=== PATIENT | female | born 1970 | race Caucasian/White ===

== ENCOUNTER 2022-11-27 14:41 | Emergency (ER) | payer OTHER, SELFPAY ==
[2022-11-27 14:53] VITALS: BP 124/85; PULSE 71; RESP 16; TEMP 36.4; O2SAT 99
--- NOTE | 2022-11-27 15:01 | ED.GENADULT ---
HPI - General Adult General Chief complaint: Nausea/Vomiting/Diarrhea Stated complaint: nausea Time Seen by Provider: 11/27/22 15:02 Source: patient, RN notes reviewed and old records reviewed Mode of arrival: ambulatory Limitations: no limitations History of Present Illness HPI narrative: 52-year-old female presents to the [facility] with complaints of flu-like symptoms that she had on the 18 12 and . Had called into work, tried going back today and they are requesting a work note. Patient has had no symptoms today. Patient states she has not had symptoms in about 36 hours. Related Data Home Medications Medication Instructions Recorded Confirmed No Home Medications 11/27/22 11/27/22 Allergies Allergy/AdvReac Type Severity Reaction Status Date / Time adhesive AdvReac Unknown BLISTERS Unverified 11/27/22 15:04 latex AdvReac Unknown BLISTERS Unverified 11/27/22 15:04 Penicillins AdvReac Unknown BLISTERS Unverified 11/27/22 15:04 Review of Systems Review of Systems: All systems reviewed & are unremarkable except as noted in HPI and below Constitutional: Constitutional: Reports no additional constitutional complaints Eyes: Eyes: Reports no additional eye complaints ENT: Reports system reviewed and no additional complaints, except as documented Cardiovascular: Cardiovascular: Reports no additional cardiovascular complaints, Denies chest pain and Denies dyspnea Respiratory: Respiratory: Reports no additional respiratory complaints, Denies chest congestion, Denies cough and Denies dyspnea Gastrointestinal: Gastrointestinal: Reports as per HPI, Denies abdominal pain, Reports nausea and Denies vomiting Musculoskeletal: Musculoskeletal: Reports no additional musculoskeletal complaints Integumentary/Breasts: Skin/Breast: Reports system reviewed and no additional complaints, except as docu Neurologic: Reports system reviewed and no additional complaints, except as documented Psychiatric: Psychiatric: Reports no additional psychiatric complaints Allergic/Immunologic: Allergic/Immunologic: Reports no additional allergic/immunologic complaints PMFSH Comments At the time of my signature, I reviewed and agree with the nursing past medical, surgical, social, and family history. There is no relevant family history pertinent to the patient complaint. Exam Const: General: cooperative, healthy appearing, comfortable, no acute distress, well developed, alert and well nourished Nutritional Appearance: well nourished Orientation/consciousness: patient oriented x3 Limitations: no limitations HENMT: Head: normal to inspection Ears: hearing grossly normal bilaterally and external ears normal Face/Nose/Sinus: Normal external nose present, Normal nares present, Normal nasal mucous membranes and turbinates present and normal facial exam Face and sinus: normal facial exam Mouth: Yes Normal oral and palatal mucosa present, Yes lip normal and Yes moist mucous membranes Throat: posterior oropharynx normal and uvula midline Eyes: General: appearance normal, both eyes and all related structures Alignment and Position: alignment normal Periorbital: periorbital findings normal Conjunctivae: conjunctivae normal Pupils: Equal, round and reactive pupils present EOM: EOMs intact bilaterally Neck: Neck: normal visual inspection, full ROM, no lymphadenopathy and no meningeal signs Chest: Chest palpation & inspection: normal inspection of the chest Resp: Effort & Inspection: normal respiratory effort and able to speak in complete sentences Auscultation: clear to auscultation bilaterally, no crackles, no rales, no rhonchi and no wheezes Cardio: Rate: regular rate Rhythm: regular rhythm GI: GI Palp: Yes Soft to palpation and No Tenderness to palpation present (GI) Back/Spine/Pelvis: Cervical Spine: cervical ROM normal Thoracic/Lumbar Spine: No thoracic spinal tenderness Skin: General skin exam: normal color and no rashes or lesion
== END 2022-11-27 15:10 | disposition home or self-care (01) ==
PROVIDERS: Emergency Provider Nurse Practitioner
DX: R11.0 Nausea (principal); I25.10 Atherosclerotic heart disease of native coronary artery without angina pectoris; Z95.5 Presence of coronary angioplasty implant and graft; I25.2 Old myocardial infarction
CPT/HCPCS: 99211; G0463

== ENCOUNTER 2024-12-03 16:51 | Emergency (ER) | payer OTHER, SELFPAY ==
[2024-12-03] VITALS (12 sets, daily range): BP systolic 97–124; BP diastolic 70–97; PULSE 54–77; RESP 10–20; TEMP 36.6; O2SAT 97–100
--- NOTE | ~2024-12-03 | CT_ITS ---
EXAMINATION: CTA abdomen pelvis DATE: 12/03/2024 20:23 BIT SANDER INDICATION: Abdomen pain. History of mesenteric thrombosis. TECHNIQUE: Computed tomographic angiography (CTA) of the abdomen, and pelvis was performed with 100 m L Omnipaque-350 intravenous contrast. The dose-length product was 198.31 mGy-cm. Maximum intensity pr ojection 3D-reconstructions of the aorta and other arteries were constructed by the technologist on a separate workstation. Automated exposure control and iterative reconstruction technique were cherelle fonseca. COMPARISON: None. FINDINGS: Abdomen/pelvis CTA: There is extensive atherosclerosis of the aorta. There are severe stenosis of the celiac axis and SMA with the origins of each of these being nearly completely occluded. There is mild narrowing of the o rigin the right renal artery. There is near complete occlusion of the right common iliac with reconst itution in the pelvis. There is a severe stenosis of the left external iliac artery. Gallbladder cont ains hyperdense material, possibly vicarious excretion of contrast. There are stents in the celiac ax is, SMA and iliac arteries. The spleen, pancreas, adrenal glands and kidneys are unremarkable. No bertha e air or free fluid. Nonobstructive bowel pattern. There is degenerative disc disease and endplate de generative change at L4-5. Lung bases are unremarkable. Calcified granuloma right lower lobe. IMPRESSION: 1. Severe extensive atherosclerosis of the aorta, celiac axis, SMA, iliac arteries. Mild stenosis rig ht renal artery origin. Reviewed, dictated and finalized at location A. SANDER IMPRESSION: 1. Severe extensive atherosclerosis of the aorta, celiac axis, SMA, iliac arter ies. Mild stenosis right renal artery origin.
[2024-12-03] MEDS: SODIUM CHLORIDE 0.9% IV 1,000 ML 999 ML IV CONT (18:50)
[2024-12-03 19:02] LABS: Basophils Percent Auto 0.4 % (0.2-1.2); Eosinophils Percent Auto 0.2 % (0-4.4); Hematocrit 41.4 % (37.0-47.0); Hemoglobin 14.1 g/dL (12.0-15.0); Immature Granulocyte Absolute 0.03 K/mm3 (0.00-0.031); Immature Granulocyte Percent A 0.3 % (0-0.5); Lymphocytes Absolute Auto 3.24 K/mm3 (0.9-3.2); Lymphocytes Percent Auto 31.3 % (18.3-44.2); Mean Corpuscular HGB Conc 34.1 g/dl (32-36); Mean Corpuscular Hemoglobin 32.9 pg (26-34); Mean Corpuscular Volume 96.7 fl (80-100); Mean Platelet Volume 10.2 fl (7.4-10.4); Monocytes Absolute Auto 0.8 K/mm3 (0.1-0.6); Monocytes Percent Auto 7.3 % (2.6-8.5); Neutrophils Absolute Auto 6.3 K/mm3 (1.3-6.7); Neutrophils Percent Auto 60.5 % (45.5-73.1); Platelet Count Result 287 k/mm3 (150-375); Red Blood Count 4.28 M/mm3 (4.2-5.4); Red Cell Distribution Width 12.7 % (11.5-14.5); White Blood Count 10.4 K/mm3 (4.5-10.0)
--- NOTE | 2024-12-03 19:18 | ED.NAVMDI ---
HPI - Nausea/Vomiting/Diarrhea General Chief complaint: Nausea/Vomiting/Diarrhea Stated complaint: n/v/d Time Seen by Provider: 12/03/24 18:31 Source: patient Mode of arrival: ambulatory Limitations: no limitations History of Present Illness HPI Narrative: This is a 54-year-old female that presents to the emergency department for abdominal pain. Reports this has been progressing over the last month or 2. Reports she is to the point where she can hardly eat due to the pain. She has also experienced nausea vomiting. Reports history of vascular disease with stents placed by Dr. Kathleen. Denies fevers. Related Data Home Medications ?Medication ?Instructions ?Recorded ?Confirmed ?Last Taken ?Type No Home Medications 11/27/22 11/27/22 Unknown History Allergies Allergy/AdvReac Type Severity Reaction Status Date / Time adhesive AdvReac Unknown BLISTERS Verified 12/03/24 18:48 latex AdvReac Unknown BLISTERS Verified 12/03/24 18:48 Penicillins AdvReac Unknown BLISTERS Verified 12/03/24 18:48 Review of Systems Review of Systems: CONSTITUTIONAL: Denies fever GASTROINTESTINAL: Reports abdominal pain, nausea, vomiting All systems reviewed & are unremarkable except as noted in HPI and below PMFSH Past Medical History Medical History (Updated 12/04/24 @ 00:39 by Dorina Powell PA-C) History of vascular disease Social History Social History (Updated 12/04/24 @ 00:39 by Dorina Powell PA-C) Substance use: never Exam Narrative: GENERAL: Well-appearing, well-nourished, and in no acute distress. HEAD: Normocephalic, atraumatic. EYES: EOMI. CHEST: Clear to auscultation. No respiratory distress. No wheezes rales or rhonchi HEART: Regular rate and rhythm. No murmur heard. Normal peripheral pulses. ABDOMEN: Soft, nondistended, normal active bowel sounds. Tender to palpation throughout the abdomen, without guarding EXTREMITIES: Normal range of motion. No edema. SKIN: Warm, dry, no rash. NEURO: No focal deficits. Alert and oriented x3. PSYCH: Normal mood and affect Course Course Emergency Course: patient updated on her workup and recommendation for transfer Consultations Consultation #1: Spoke with vascular surgery at Dr. Heriberto Betancourt about patient and workup who accepts patient as transfer. Recommends starting heparin drip Date: 12/04/24 Vital Signs Vital signs: Vital Signs Temperature 97.9 F 12/03/24 17:06 Pulse Rate 77 12/03/24 17:06 Respiratory Rate 18 12/03/24 17:06 Blood Pressure 97/71 L 12/03/24 17:06 Pulse Oximetry 97 12/03/24 17:06 Oxygen Delivery Room Air 12/03/24 17:06 Temperature 97.9 F 12/03/24 17:06 Pulse Rate 59 L 12/04/24 00:31 Respiratory Rate 17 12/04/24 00:31 Blood Pressure 104/71 12/04/24 00:31 Pulse Oximetry 99 12/04/24 00:31 Oxygen Delivery Room Air 12/03/24 17:06 MDM - Nausea/Vomiting/Diarrhea MDM Narrative Medical decision making narrative: Patient presents to the emergency department for worsening abdominal pain ongoing over the last month. She is afebrile nontoxic appearing. Her vitals are stable. CBC with mild leukocytosis to 10.4. Metabolic panel with mild hypokalemia, potassium will be replaced. Urine without evidence of infection. CTA abdomen pelvis shows severe extensive atherosclerosis of the aorta, celiac axis, SMA, iliac arteries. Mild stenosis right renal artery origin. Spoke with vascular surgery at Dr. Heriberto Betancourt about patient and workup who accepts patient as transfer. Recommends starting heparin drip. patient updated on her workup and recommendation for transfer Differential Diagnosis Differential diagnosis: Likely other (vascular occlusion, abdominal mass, dehydration, electrolyte derangement) Lab Data Attestation: I reviewed the patient's lab results. 12/04/24 00:52 12/03/24 18:45 Labs: Lab Results 12/03/24 12/03/24 12/03/24 Range/Units 18:45 19:35 22:11 WBC 10.4 H (4.5-10.0) K/mm3 RBC 4.28 (4.2-5.4) M/mm3 Hgb 14.1 (12.0-15.0) g/dL Hct 41.4 (37.0-47.0) % MCV 96.7 (80-100) fl MCH 32.9 (26-34) pg MCHC 34.1 (32-36) g/dl RDW 12.7 (11.5-14.5) % Plt Count 287 (150-375) k/mm3 MPV 10.2 (7.4-10.4) fl Immature Gran % (Auto) 0.3 (0-0.5) % Neut % (Auto) 60.5 (45.5-73.1) % Lymph % (Auto) 31.3 (18.3-44.2) % [place] % (Auto) 7.3 (2.6-8.5) % Eos % (Auto) 0.2 (0-4.4) % Baso % (Auto) 0.4 (0.2-1.2) % Lymph # (Auto) 3.24 H (0.9-3.2) K/mm3 [place] # (Auto) 0.8 H (0.1-0.6) K/mm3 Eos # (Auto) 0.0 (0-0.3) K/mm3 Baso # (Auto) 0.0 (0.0-0.1) K/mm3 Abs Immat Gran (auto) 0.03 (0.00-0.031) K/mm3 Absolute Neuts (auto) 6.3 (1.3-6.7) K/mm3 Absolute Nucleated RBC 0.000 (0.0-0.012) K/mm3 Nucleated RBC % 0.0 (0.0-0.2) % PT (11.1-14.7) Seconds INR APTT (22.3-36.8) Seconds Sodium 132 L (137-145) mmol/L Potassium 3.1 L (3.4-5.0) mmol/L Chloride 97 L (98-107) mmol/L Carbon Dioxide 29 (22-30) mmol/L Anion Gap 6 (4-12) mmol/L BUN 9 (7-17) mg/dL Creatinine 0.51 L (0.7-1.0) mg/dL Estim Creat Clear Calc 65 ml/min Estimated GFR > 60 (59 - ) Glucose 117 H (65-110) mg/dL Lactic Acid 1.4 (0.7-2.0) mmol/L Calcium 9.4 (8.4-10.2) mg/dL Magnesium 1.6 (1.6-2.3) mg/dL Total Bilirubin 0.4 (0.2-1.3) mg/dL AST 20 (14-36) U/L ALT 14 (6-35) U/L Alkaline Phosphatase 85 (38-126) U/L Total Protein 7.0 (6.3-8.2) g/dL Albumin 4.0 (3.5-5.1) g/dL Lipase 72 (23-300) U/L Urine Color Yellow (Yellow) Urine Appearance Clear (Clear) Urine pH 6.5 (5.0-9.0) Ur Specific [place] 1.022 (1.001-1.035) Urine Protein Negative (Negative) mg/dL Urine Glucose (UA) Negative (Negative) mg/dL Urine Ketones Negative (Negative) mg/dL Ur Blood (Man) Negative (Negative) Urine Nitrate Negative (Negative) Urine Bilirubin Negative (Negative) Urine Urobilinogen 1.0 (<2.0) mg/dL Leukocyte Esterase Rfl Negative (Negative) JACKIE/UL POC Urine HCG, Qual (Negative) 12/03/24 12/04/24 Range/Units 22:13 00:52 WBC 9.5 (4.5-10.0) K/mm3 RBC 4.47 (4.2-5.4) M/mm3 Hgb 14.8 (12.0-15.0) g/dL Hct 43.3 (37.0-47.0) % MCV 96.9 (80-100) fl MCH 33.1 (26-34) pg MCHC 34.2 (32-36) g/dl RDW 12.7 (11.5-14.5) % Plt Count 265 (150-375) k/mm3 MPV 9.9 (7.4-10.4) fl Immature Gran % (Auto) 0.2 (0-0.5) % Neut % (Auto) 62.7 (45.5-73.1) % Lymph % (Auto) 30.1 (18.3-44.2) % [place] % (Auto) 6.2 (2.6-8.5) % Eos % (Auto) 0.5 (0-4.4) % Baso % (Auto) 0.3 (0.2-1.2) % Lymph # (Auto) 2.84 (0.9-3.2) K/mm3 [place] # (Auto) 0.6 (0.1-0.6) K/mm3 Eos # (Auto) 0.1 (0-0.3) K/mm3 Baso # (Auto) 0.0 (0.0-0.1) K/mm3 Abs Immat Gran (auto) 0.02 (0.00-0.031) K/mm3 Absolute Neuts (auto) 5.9 (1.3-6.7) K/mm3 Absolute Nucleated RBC 0.000 (0.0-0.012) K/mm3 Nucleated RBC % 0.0 (0.0-0.2) % PT 14.6 (11.1-14.7) Seconds INR 1.1 APTT 32.9 (22.3-36.8) Seconds Sodium (137-145) mmol/L Potassium (3.4-5.0) mmol/L Chloride (98-107) mmol/L Carbon Dioxide (22-30) mmol/L Anion Gap (4-12) mmol/L BUN (7-17) mg/dL Creatinine (0.7-1.0) mg/dL Estim Creat Clear Calc ml/min Estimated GFR (59 - ) Glucose (65-110) mg/dL Lactic Acid (0.7-2.0) mmol/L Calcium (8.4-10.2) mg/dL Magnesium (1.6-2.3) mg/dL Total Bilirubin (0.2-1.3) mg/dL AST (14-36) U/L ALT (6-35) U/L Alkaline Phosphatase (38-126) U/L Total Protein (6.3-8.2) g/dL Albumin (3.5-5.1) g/dL Lipase (23-300) U/L Urine Color (Yellow) Urine Appearance (Clear) Urine pH (5.0-9.0) Ur Specific [place] (1.001-1.035) Urine Protein (Negative) mg/dL Urine Glucose (UA) (Negative) mg/dL Urine Ketones (Negative) mg/dL Ur Blood (Man) (Negative) Urine Nitrate (Negative) Urine Bilirubin (Negative) Urine Urobilinogen (<2.0) mg/dL Leukocyte Esterase Rfl (Negative) JACKIE/UL POC Urine HCG, Qual Negative (Negative) Imaging Data Radiologist's impression: ITS Impressions Abdomen/Pelvis CTA 12/03/24 20:23 IMPRESSION: 1. Severe extensive atherosclerosis of the aorta, celiac axis, SMA, iliac arteries. Mild stenosis right renal artery origin. 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
[2024-12-03 19:34] LABS: Alanine Aminotransferase 14 U/L (6-35); Alkaline Phosphatase 85 U/L (38-126); Anion Gap 6 mmol/L (4-12); Aspartate Amino Transferase 20 U/L (14-36); Bilirubin,Total 0.4 mg/dL (0.2-1.3); Blood Urea Nitrogen 9 mg/dL (7-17); Calcium 9.4 mg/dL (8.4-10.2); Carbon Dioxide 29 mmol/L (22-30); Chloride 97 mmol/L (98-107); Estimated CRCL calculation 65 ml/min; Estimated Glomerular Filt Rate > 60; Glucose 117 mg/dL (65-110); Lipase 72 U/L (23-300); Potassium 3.1 mmol/L (3.4-5.0); Sodium 132 mmol/L (137-145)
[2024-12-03] MEDS: MORPHINE SULFATE (*CRX) 4 MG/ML INJ IV PUSH ×2 (19:39→22:10)
[2024-12-03] MEDS: ONDANSETRON INJ 4 MG/2 ML VIAL IV PUSH (19:39)
[2024-12-03 19:50] LABS: Lactic Acid Reflex 1.4 mmol/L (0.7-2.0)
[2024-12-03 20:08] LABS: Magnesium 1.6 mg/dL (1.6-2.3)
[2024-12-03 22:15] LABS: BEDSIDEPREGUCG Negative (Negative)
[2024-12-03 22:46] LABS: Add Urine Microscopic? NO; Appearance Urine Clear (Clear); Bilirubin Urine Negative (Negative); Blood Urine Negative (Negative); Color Urine Yellow (Yellow); Glucose Urine UA Negative (Negative); Ketones Urine Negative (Negative); Leukocyte Esterase Ur Negative LEU/UL (Negative); Nitrate Urine Negative (Negative); Protein Urine Negative (Negative); Specific Grav Ur 1.022 (1.001-1.035); pH Urine 6.5 (5.0-9.0)
[2024-12-04] VITALS (38 sets, daily range): BP systolic 78–118; BP diastolic 53–86; PULSE 0–84; RESP 11–22; O2SAT 94–100
--- NOTE | 2024-12-04 | PC.NURSE ---
[facility] transfer line received baseline report. Will call back if bed available.
[2024-12-04] MEDS: HEPARIN SODIUM 5,000 UNITS/ML VIAL 3000 UNITS IV PUSH (00:54)
[2024-12-04] MEDS: POTASSIUM CHLORIDE 20 MEQ ER TABLET 40 MEQ PO (00:54)
[2024-12-04] MEDS: HEPARIN SOD/D5W 100 UNITS/ML 25,000 UNITS/250 ML BAG 7 UNITS IV CONT (00:55)
[2024-12-04 00:57] LABS: Basophils Percent Auto 0.3 % (0.2-1.2); Eosinophils Absolute Auto 0.1 K/mm3 (0-0.3); Eosinophils Percent Auto 0.5 % (0-4.4); Hematocrit 43.3 % (37.0-47.0); Hemoglobin 14.8 g/dL (12.0-15.0); Immature Granulocyte Absolute 0.02 K/mm3 (0.00-0.031); Immature Granulocyte Percent A 0.2 % (0-0.5); Lymphocytes Absolute Auto 2.84 K/mm3 (0.9-3.2); Lymphocytes Percent Auto 30.1 % (18.3-44.2); Mean Corpuscular HGB Conc 34.2 g/dl (32-36); Mean Corpuscular Hemoglobin 33.1 pg (26-34); Mean Corpuscular Volume 96.9 fl (80-100); Mean Platelet Volume 9.9 fl (7.4-10.4); Monocytes Absolute Auto 0.6 K/mm3 (0.1-0.6); Monocytes Percent Auto 6.2 % (2.6-8.5); Neutrophils Absolute Auto 5.9 K/mm3 (1.3-6.7); Neutrophils Percent Auto 62.7 % (45.5-73.1); Platelet Count Result 265 k/mm3 (150-375); Red Blood Count 4.47 M/mm3 (4.2-5.4); Red Cell Distribution Width 12.7 % (11.5-14.5); White Blood Count 9.5 K/mm3 (4.5-10.0)
[2024-12-04 01:06] LABS: INR 1.1; Prothrombin Time 14.6 Seconds (11.1-14.7)
[2024-12-04 01:08] LABS: Partial Thromboplastin Time 32.9 Seconds (22.3-36.8)
[2024-12-04] MEDS: MORPHINE SULFATE (*CRX) 4 MG/ML INJ (02:20)
[2024-12-04 07:19] LABS: INR 1.1
[2024-12-04 07:21] LABS: Partial Thromboplastin Time 104.4 Seconds (22.3-36.8)
--- NOTE | 2024-12-04 11:26 | PC.NURSE ---
ordered clear liquid diet for pt @[id number]
[2024-12-04 13:15] LABS: Partial Thromboplastin Time 69.4 Seconds (22.3-36.8)
[2024-12-04] MEDS: SODIUM CHLORIDE 0.9% IV 1,000 ML 999 ML IV CONT (13:44)
[2024-12-04] MEDS: fentaNYL CITRATE INJ (*CRX) 100 MCG/2 ML VIAL 12.5 MCG IV PUSH (14:30)
--- NOTE | 2024-12-04 16:50 | PC.NURSE ---
[facility] ems arrives for pt at 1640, report given and all questions answered. called report to AUGUSTO Escobar and all questions answered. called [facility] again at 1650 to notified staff pt was leaving [place].
== END 2024-12-04 16:52 | disposition short-term general hospital (02) ==
PROVIDERS: Emergency Medicine; Emergency Provider Physician Assistant
DX: K55.069 Acute infarction of intestine, part and extent unspecified (principal); I99.9 Unspecified disorder of circulatory system; Z95.5 Presence of coronary angioplasty implant and graft; I70.1 Atherosclerosis of renal artery; I70.0 Atherosclerosis of aorta; I70.8 Atherosclerosis of other arteries
CPT/HCPCS: 36415; 74174; 80053; 81003; 81025; 83605; 83690; 83735; 85025; 85610; 85730; 96361; 96374; 96375; 96376; 99285; A9270; J1644; J2270; J2405; J3010; J7030; Q9967

== ENCOUNTER 2025-03-30 17:03 | Emergency (ER) | payer OTHER, SELFPAY ==
--- OUTSIDE RECORDS SUMMARY | 2025-03-30 17:06 | XMS_ITS | Clinical Summary ---
Author Organization [facility] Address [address] [place] [address] Care Team Providers Care Trade Mark Examiner Name Role Phone Alejo Birch Md, MD Primary Care Provider Unavailable Source Comments [facility],non-owned Affiliates and Associated Physician Practices is amultiple site organization consisting of ambulatory clinics and hospital sitesin [place], [place] and [place]. This disclosure is being madepursuant to the Care Everywhere program and may not contain all information available regarding this patient. 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 Gender Identity Not on file Sexual Orientation Not on file Plan of Treatment Health Maintenance Due Date Last Done Comments COLOGUARD (AGES 45-75) - COL ON CA SCREENING 1968 COLON MONITORING 1968 COLONOSCOPY - COLON CA SCREENING 1968 CT COLONOGRAPHY - COLON CA SCREENING 1968 Colorectal Cancer Screening 1968 FIT - COLON CA SCREENING 1968 FLEX SIG - COLON CA SCREENING 1968 LIPID TESTING 1968 MAMMOGRAM 1968 PAP SMEAR 1968 HIV SCREENING 1983 HEPATITIS C SCREENING 01/07/1986 DTAP/TDAP/TD VACCINES (1 - Tdap) 1987 HEPATITIS B VACCINE (1 of 3 - 19+ 3-dose series) 1987 PNEUMOCOCCAL VACCINE 50+ (1 of 1 - PCV) 2018 ZOSTER VACCINE (1 of 2) 2018 COVID-19 VACCINE ( - 2023-2 5 season) 2024 DEPRESSION SCREENING 11/18/2024 INFLUENZA VACCINE (Season Ended) 2025 HIB VACCINE Aged Out No longer eligi ble based on patient's age to complete this topic HPV VACCINE Aged Out No longer eligi ble based on patient's age to complete this topic MENINGOCOCCAL (Group B) VACC INE SHARED DECISION-MAKING Aged Out No longer eligibl e based on patient's age to complete this topic MENINGOCOCCAL GROUPS A/C/Y/W VACCINE Aged Out No longer eligible b ased on patient's age to complete this topic [place] [address] [place] [address] Care Teams Trade Mark Examiner Relationship Specialty Start Date End Date Alejo Birch MD, MD PCP - General 01/12/19
--- OUTSIDE RECORDS SUMMARY | 2025-03-30 17:06 | XMS_ITS ---
Author Organization [facility] Address [address] [place] [address] Care Team Providers Care Fleet Manager/Dispatch Name Role Phone Elis Louis MD PhD Unavailable + Aliyah Daniels DO Primary Care Provider [phone] RxHI TPN - TPN (Start Here) 1700 ml IV Every 24 Hours Status:Under Review (Active) Start date:03/26/2025 Enrollment date:03/26/2025 Related program episode:Home Infusion (Active) Continued Care and Services Coordination
--- OUTSIDE RECORDS SUMMARY | 2025-03-30 17:06 | XMS_ITS | Encounter Summary ---
Author Organization [facility] Address [address] [place] [address] Care Team Providers Care Hide Sorter Name Role Phone Unknown, Notinfile Primary Care Provider Unavail able James Pierce TRAFFIC SERGEANT Primary Care Provider Unknown, Notinfile Primary Care Provider Unavail able Rebekah Khan TRAFFIC SERGEANT Primary Care Provider [phone] Unknown, Notinfile Primary Care Provider Unavail able Elis Louis MD PhD Unavailable + Aliyah Daniels DO Primary Care Provider [phone] Encounter Details Date Type Department Care Team (Latest Contact Info) Description 06/06/2019 Ophth Exam Ophthalmology Keo Izquierdo MD [address] [facility] [place] [address] Social History Tobacco Use Types Packs/Day Years Used Date Smoking Tobacco: Every Day Smokeless Tobacco: Never Comments Unknown Sex and Gender Information Value Date Recorded Sex Assigned at Not on file Legal Sex Female 10:52 AM CDT Gender Identity Not on file Sexual Orientation Not on file documented as of this encounter Plan of Treatment Not on file documented as of this encounter Visit Diagnoses Not on filedocumented in this encounter Eye Exam Visual Acuity Right eye Left eye Near sc 20/20 20/20 Tonometry (3:20 PM) Right eye Left eye Pressure 16 17 Pupils Dark Light Shape React APD Right eye 5 3 Round Brisk None Left eye 5 3 Round Brisk None Visual Aldana Right eye Left eye Full Full Extraocular Movement Right eye Left eye Full Full Dilation Both eyes: 2.5% Phenylephrin e, 1% Tropicamide @ 3:10 PM External Exam Right eye Left eye External Normal Normal Slit Lamp Exam Right eye Left eye Lids/Lashes Normal Normal Conjunctiva/Sclera White and quiet White and candice et Cornea Clear Clear Anterior Chamber Deep and quiet Deep and quiet Iris Round and reactive Round and aron ctive Lens trace NS trace NS Vitreous Normal Normal Fundus Exam Right eye Left eye Disc Normal Normal C/D Ratio 0.25 0.25 Macula trace pigment mottling trace pig ment mottling Vessels Normal Normal Periphery Normal Normal Care Teams Hide Sorter Relationship Specialty Start Date End Date Unknown, Notinfile PCP - General 06/06/19 05/18/20 James Pierce, MONTEZ [address] [address] PCP - General Nurse Practitioner 05/19/20 12/04/24 Unknown, Notinfile PCP - General 12/05/24 12/14/24 Rebekah Khan NP [address] [place] [address] PCP - General Orthopedic Surgery 12/15/24 12/17/24 Unknown, Notinfile PCP - General 12/18/24 12/22/24 Aliyah Daniels DO [address] [place] [address] [place] [id number] PCP - General Family Medicine 12/23/24 Elis Louis MD PhD [id number] [place] [address] Consulting Physician Vascular Surgery 12/22/24 documented as of this encounter
--- OUTSIDE RECORDS SUMMARY | 2025-03-30 17:06 | XMS_ITS | Encounter Summary ---
Author Organization [facility] Address [address] [facility] [place] [address] Phone Care Team Providers Care Transitional Kindergarten Teacher Name Role Phone Terry Anguiano Patricia MARC Unavailable [phone] Ronnie Jamil MD Unavailable [phone] James Pierce APRN, ENVIRONMENTAL PROTECTION OFFICER Primary Care Pr ovider Reason for Visit * Reason Comments Medication Refill Encounter Details Date Type Department Care Team (Late st Contact Info) Description 04/26/[address] [facility] - Family Medicine [facility] [address] [place] [address] James Pierce, YG, ENVIRONMENTAL PROTECTION OFFICER [address] [address] Medication Refill Social History Tobacco Use Types Packs/Day Years Used Date Smoking Tobacco: Light Smoker Cigarettes Last attempted t o quit: 07/28/2017 Smokeless Tobacco: Never Alcohol Use Standard Drinks/Week Comments No 0 (1 standard drink = 0.6 oz pur e alcohol) PHQ-2 Answer Date Recorded PHQ-2 Score 13 09/14/2019 Sexually Active Control Partners Comments Not Currently Post-menopausal Male Comments No Sex and Gender Information Value Date Recorded Sex Assigned at Not on file 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 No / Unsure 04/28/2020 1:11 PM CDT documented as of this encounter Miscellaneous Notes * Telephone Encounter - Negra Lucio RN - 04/26/2020 8:45 AM CDT Requested Prescriptions Pending Prescriptions Disp Refills pregabalin (LYRICA) 100 MG Capsule [Pharmacy Med Name: PREGABALIN 100MG CAPSULE] 90 Cap 0 Sig: TAKE 1 CAP BY MOUTH 3 TIMES DAILY. Not Delegated - Neurology: Anticonvulsants - Controlled Substances Failed - 04/26/2020 7:19 AM Failed - This refill cannot be delegated Passed - Valid encounter within last 12 months Past Office Visits Recent Outpatient Visits 1 month ago Lower extremity pain, right [facility] James Pierce APN, CNP 3 months ago Encounter for general adult medical examination with abnormal findings [facility] James Pierce APN, CNP 4 months ago Major depressive disorder, recurrent episode, moderate with anxious distress (HCC) [facility] James Guerra APN, CNP 7 months ago Essential hypertension [facility] James Pierce APN, CNP 10 months ago Chronic obstructive pulmonary disease, unspecified COPD type (HCC) [facility] James Pierce APN, CNP Upcoming Appointments Future Appointments In 6 days James Pierce APN, CNP [facility] oxyCODONE-Acetaminophen (PERCOCET) 10-325 MG Tablet [Pharmacy Med Name: OXYCODONE/ACETAMINOPHEN 10-325MG TABLET] 120 Tab 0 Sig: Take 1 Tab by mouth every 6 hours as needed for Moderate or more severe pain. Not Delegated - Analgesics: Opioid Agonist Combinations Failed - 04/26/2020 7:19 AM Failed - This refill cannot be delegated Passed - Valid encounter within last 6 months Past Office Visits Recent Outpatient Visits 1 month ago Lower extremity pain, right [facility] James Pierce APN, CNP 3 months ago Encounter for general adult medical examination with abnormal findings [facility] James Pierce APN, CNP 4 months ago Major depressive disorder, recurrent episode, moderate with anxious distress (HCC) [facility] James Pierce APN, CNP 7 months ago Essential hypertension [facility] James Pierce APN, CNP 10 months ago Chronic obstructive pulmonary disease, unspecified COPD type (HCC) [facility] James Pierce APN, CNP Upcoming Appointments Future Appointments In 6 days James Pierce APN, CNP [facility], [facility] documented in this encounter Plan of Treatment Not on file documented as of this encounter Visit Diagnoses Diagnosis Fibromyalgia Mylagia and myositis, unspecified Chronic pain syndrome documented in this encounter Additional Health Concerns Assessment Noted Time PHQ-9 Depression Total Score: 13 019 4:36 PM CDT documented as of this encounter Care Teams Transitional Kindergarten Teacher Relationship Specialty Start Date End Date James Pierce APRN, CNP [address] [address] PCP - General Certified Nurse Practitioner 10/07/18 02/10/23 Terry Anguiano DPM Podiatry 01/07/17 Ronnie Jamil MD Consulting Physician Neurology 03/22/17 10/04/24 documented as of this encounter
--- OUTSIDE RECORDS SUMMARY | 2025-03-30 17:06 | XMS_ITS | Clinical Summary ---
Author Organization [facility] Address [address] [facility] [address] [place] [address] Phone Care Team Providers Care Talent Acquisition Operations Manager Name Role Phone AnnmarieTerry lynn Patricia DPM Unavailable [phone] Allergies Active Allergy Reactions Criticality Noted Date Comments Adhesive Tape Other (see Comments) High 01/22/2017 rips my skin off and skin blisters Latex Hives,Rash,Other (se e Comments) High 11/22/2016 One touch and she will break out with blister on the location of contact Penicillins Hives,Other (see Comments) High 11/22/2016 Patient becomes violent when ever she has been given the medication Medications SUMAtriptan (IMITREX) 100 MG Tablet Take 1 Tab by mouth once as needed for Migraine for up to 1 dose. Use as directed. May repeat dose in 2 hours if headache recurs. 9 Tab 8 0 Active aspirin EC 81 MG Tablet Delayed ResponseIndications :Lower extremity pain, right Take 1 Tab by mouth daily. 0 Active clopidogrel (PLAVIX) 75 MG Tablet Take 75 mg by mouth daily. Active Nutritional Supplements (Boost High Protein) Liquid Take 1 Can by mouth 4 times daily (with meals and nightly). 125 Can 11 0 Active albuterol 108 (90 Base) MCG/ACT Aerosol Solution INHALE 2 PUFFS INTO LUNGS EVERY 6 HOURS NEEDED FOR COUGH 2 Inhaler 2 1 Active MAGnesium-Oxide 400 (241.3 Mg) MG Tablet Take 400 mg by mouth 2 times daily. 1 Active traZODone (DESYREL) 50 MG Tablet Take 1 Tablet by mouth nightly. 90 Tablet 3 1 Active magnesium oxide (MAG-OX) 400 MG Tablet Take 1 Tablet by mouth 2 times daily. 180 Tablet 3 1 Active atorvastatin (LIPITOR) 40 MG TabletIndications:M ixed hyperlipidemia Take 1 Tablet by mouth daily. 90 Tablet 3 1 Active oxyCODONE-Acetamino phen (PERCOCET) 10-325 MG TabletIndications:C hronic pain syndrome Take 1 Tablet by mouth every 6 hours as needed for Moderate or more severe pain. 120 Tablet 2 Active pregabalin (LYRICA) 100 MG CapsuleIndications: Fibromyalgia Take 1 Capsule by mouth 3 times daily. 90 Capsule 1 2 Active cyclobenzaprine (FLEXERIL) 10 MG TabletIndications:C hronic pain syndrome Take 0.5 Tablets by mouth 3 times daily as needed for Muscle spasms. 45 Tablet 4 2 Active Active Problems Problem Noted Date Diagnosed Date PVD (peripheral vascular disease) 03/23/2021 Chest pain 03/23/2021 Dizziness 03/23/2021 Skin lesion of foot 03/23/2021 Renal artery stenosis 04/29/2020 Mesenteric artery stenosis 04/29/2020 Stenosis of right iliac artery 04/29/2020 Noncompliance 09/14/2019 Hyperlipidemia 07/27/2019 Vitamin D deficiency 07/27/2019 Vision disturbance 07/08/2019 Fibromyalgia 03/02/2019 Major depressive disorder, r ecurrent episode, moderate with anxious distress 02/16/2019 Chronic pain syndrome 01/22/2019 Myalgia 12/26/2018 COPD (chronic obstructive pulmonary disease) Neuropathy 10/31/2018 Hypertension 10/07/2018 Depression 10/07/2018 Anxiety 10/07/2018 Lipoma of skin and subcutaneous tissue 8 Intractable chronic migraine without aura and without status migrainosus 02/21/2018 Bilateral carpal tunnel syndrome 04/11/2017 Hyperhidrosis of soles 01/07/2017 Plantar wart of left foot 01/07/2017 Back pain Cervical pain Resolved Problems Problem Noted Date Diagnosed Date Resolved Date Current moderate episode of major depressive disorder without prior episode 03/25/2019 0 Immunizations Immunization Administration Dates Next Due Covid-19, Mrna, Lnp-s, Pf, 1 00 Mcg Or 50 Mcg Dose (MODERNA) 04/26/2021,03/29/2021 Pneumococcal Vaccine - 13 Valent 10/07/2018 Pneumococcal Vaccine Adult - 23 Valent 9 Family History Medical History Relation Name Comments No Known Problems Brother 1 Other-comment Brother 2 Degernerative disc in lumbar Heart Attack Father Heart Surgery Father Hypertension Father Lung Cancer Father Bipolar Disorder Mother Heart Attack Mother Hypertension Mother Other-comment Mother Fibromyalgia , diverticulitis Schizophrenia Mother No Known Problems Sister 1 Bipolar Disorder Sister 2 Other-comment Sister 2 PTSD Schizophrenia Sister 2 ADD / ADHD Son Autism Son Schizophrenia Son Relation Name Status Comments Brother 1 Alive Brother 2 Alive Father Mother Sister 1 Alive Sister 2 Alive Son Social History Tobacco Use Types Packs/Day Years Used Date Smoking Tobacco: Light Smoker Cigarettes Last attempted t o quit: 07/28/2017 Smokeless Tobacco: Never Tobacco Cessation:Ready to Q uit: No; Counseling Given: Yes Alcohol Use Standard Drinks/Week Comments No 0 (1 standard drink = 0.6 oz pur e alcohol) PHQ-2 Answer Date Recorded Total Score - Questions 1-9 1 04/2021 Sexually Active Control Partners Comments Not Currently Post-menopausal Male Comments No Sex and Gender Information Value Date Recorded Sex Assigned at Not on file Legal Sex Female 12:49 PM SOAP GRINDER Gender Identity Not on file Sexual Orientation Not on file 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 on file Not on file Not on file Last Filed Vital Signs Vital Sign Reading Time Taken Comments Blood Pressure 110/64 12/08/2021 2:18 PM SOAP GRINDER Pulse 80 12/08/2021 2:18 PM SOAP GRINDER Temperature 35.9 C (96.7 F) 12/08/2021 2:18 PM SOAP GRINDER Respiratory Rate 14 12/08/2021 2:18 PM SOAP GRINDER Oxygen Saturation 96% 11/02/2021 9:25 AM SOAP GRINDER Inhaled Oxygen Concentration - - Weight 49.9 kg (110 lb 1.6 oz) 12/08/2021 2:18 P M SOAP GRINDER Height 170.2 cm (5' 7 ) 12/08/2021 2:18 PM SOAP GRINDER Body Mass Index 17.24 12/08/2021 2:18 PM SOAP GRINDER Plan of Treatment Health Maintenance Due Date Last Done Comments Hepatitis C Virus (HCV) Screening 1968 TdaP Immunization 1968 Hepatitis B Immunization (1 of 3 - 19+ 3-dose series) 1987 Pap Smear 1989 Cervical Cancer Screening (CCS) 1998 HPV/Cotest 1998 Colonoscopy 2013 Colorectal Cancer Screening 2013 Cologuard 2018 Immunochemical Fecal Occult Blood 2018 Zoster Immunization (1 of 2) 2018 Mammogram 04/03/2022 04/03/2021 Pneumococcal Immunization (5 0+ years) (3 of 3 - PCV20 or PCV21) 01/14/2024 01/14/2019, 10/07/2018 SARS-COV-2 Immunization (3 - season) 2024 04/26/2021, 03/29/2021 Respiratory Syncytial Virus (RSV) Immunization (Adult) (1 - 1-dose 75+ series) 2043 Pneumococcal Immunization Combined Discontinued 01/14/2019, 10/07/2018 Influenza Immunization Completed 12/22/2024 Meningococcal Immunization (ACWY) Aged Out No longer eligible based on patient's age to complete this topic Rotavirus Immunization Aged Out No lo nger eligible based on patient's age to complete this topic Procedures Procedure Name Priority Date/Time Associated Diagnosis Comments YOGI SCREENING BILATERAL DIGITAL W CAD W AMBAR Routine 04/03/2021 7:56 AM CDT Encounter for screening mammogram for malignant neoplasm of breast from Last 3 Months or Most Recently Relevant to Health Maintenance Results * YOGI SCREENING BILATERAL DIGITAL W CAD W AMBAR (04/03/2021 7:56 AM CDT) Anatomical Region Laterality Modality breast Bilateral Mammography 04/03/2021 9:02 AM CDT Narrative 04/14/2021 1:09 PM CDT - YOGI SCREENING BILATERAL DIGITAL W CAD W AMBAR BILATERAL DIGITAL SCREENING MAMMOGRAM 3D/2D WITH CAD WITH MEDIOLATERAL OBLIQUE CRANIOCAUDAL: 04/03/2021 The study was acquired using digital technology and interpreted from soft copy. Current study was also evaluated with ICAD version 7.2. 2D digital mammographic views, as well as 3D digital tomosynthesis were performed in the CC and MLO projections. CLINICAL: New baseline. Routine screening. Patient has no complaints. No personal history of cancer. No family history of breast cancer. COMPARISONS: No prior exams were available for comparison. BREAST TISSUE:There are scattered fibroglandular densities in both breasts. FINDINGS: No significant masses, calcifications, or other findings are seen in either breast. IMPRESSION: BI-RAD 1 NEGATIVE There is no mammographic evidence of malignancy. A 1 year screening mammogram is recommended. The patient has been or will be contacted. The patient will be entered into a reminder system with a target due date of 1 year for her next screening exam. Electronically signed by: Agus sprague/odessa:04/14/2021 12:09:55 Electrical Laboratory Technician: Joslyn Roy RT(R)(M), [facility] letter sent: Normal Exam Reading location: [facility] BI-RADS: 1 Negative Procedure Note Agus Sebastian MD - 04/14/2021 - YOGI SCREENING BILATERAL DIGITAL W CAD W AMBAR BILATERAL DIGITAL SCREENING MAMMOGRAM 3D/2D WITH CAD WITH MEDIOLATERAL OBLIQUE CRANIOCAUDAL: 04/03/2021 The study was acquired using digital technology and interpreted from soft copy. Current study was also evaluated with ICAD version 7.2. 2D digital mammographic views, as well as 3D digital tomosynthesis were performed in the CC and MLO projections. CLINICAL: New baseline. Routine screening. Patient has no complaints. No personal history of cancer. No family history of breast cancer. COMPARISONS: No prior exams were available for comparison. BREAST TISSUE:There are scattered fibroglandular densities in both breasts. FINDINGS: No significant masses, calcifications, or other findings are seen in either breast. IMPRESSION: BI-RAD 1 NEGATIVE There is no mammographic evidence of malignancy. A 1 year screening mammogram is recommended. The patient has been or will be contacted. The patient will be entered into a reminder system with a target due date of 1 year for her next screening exam. Electronically signed by: Agus sprague/odessa:04/14/2021 12:09:55 Electrical Laboratory Technician: Joslyn Roy RT(R)(M), [facility] letter sent: Normal Exam Reading location: [place] BI-RADS: 1 Negative us James Yann Pierce TERMINAL WORKER, PREFITTER DOORS IMG MAMMO ORDERA BLES Final Result from Last 3 Months or Most Recently Relevant to Health Maintenance Insurance MEDICAID [place] Care Teams Talent Acquisition Operations Manager Relationship Specialty Start Date End Date Terry Anguiano DPM Podiatry 01/07/17
--- OUTSIDE RECORDS SUMMARY | 2025-03-30 17:06 | XMS_ITS ---
Author Organization [facility] Address [address] [place] [address] Care Team Providers Care University Internship Name Role Phone Elis Louis MD PhD Unavailable + Aliyah Daniels DO Primary Care Provider [phone] Home Infusion Status:Enrolled (Active) Start date:03/26/2025 Enrollment date:03/26/2025 Related service episodes:RxHI TPN - TPN (Start Here) 1700 ml IV Every 24 Hours (Active) Continued Care and Services Coordination
--- OUTSIDE RECORDS SUMMARY | 2025-03-30 17:06 | XMS_ITS | Encounter Summary ---
Author Organization [facility] Address [address] [facility] [place] [address] Phone Care Team Providers Care Punch Hand Name Role Phone Terry Anguiano Patricia MARC Unavailable [phone] Ronnie Jamil MD Unavailable [phone] James Pierce APRN, FIELD TECHNICAL SUPPORT CONSULTANT Primary Care Pr ovider Reason for Visit * Reason Comments Medication Refill Encounter Details Date Type Department Care Team (Late st Contact Info) Description 03/25/2021 Refill [facility] - Family Medicine [facility] [address] [place] [id number] James Pierce, YG, FIELD TECHNICAL SUPPORT CONSULTANT [address] [address] Medication Refill Social History Tobacco Use Types Packs/Day Years Used Date Smoking Tobacco: Light Smoker Cigarettes Last attempted t o quit: 07/28/2017 Smokeless Tobacco: Never Alcohol Use Standard Drinks/Week Comments No 0 (1 standard drink = 0.6 oz pur e alcohol) PHQ-2 Answer Date Recorded Total Score - Questions 1-9 1 05/04/2021 Sexually Active Control Partners Comments Not Currently Post-menopausal Male Comments No Sex and Gender Information Value Date Recorded Sex Assigned at Not on file Legal Sex Female 12:49 PM COLLAR TURNER Gender Identity Not on file Sexual Orientation Not on file 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 No / Unsure 03/22/2021 10:30 AM CDT documented as of this encounter Miscellaneous Notes * Telephone Encounter - Yeny King, RN - 03/27/2021 12:12 PM CDT Called pharmacy and verified that patient picked up script on 03/23/21 Yeny RN documented in this encounter Plan of Treatment Not on file documented as of this encounter Visit Diagnoses Diagnosis Fibromyalgia Mylagia and myositis, unspecified documented in this encounter Additional Health Concerns Assessment Noted Time PHQ-9 Depression Total Score: 1 03/23/20 21 3:00 PM CDT documented as of this encounter Care Teams Punch Hand Relationship Specialty Start Date End Date James Pierce APRN, FIELD TECHNICAL SUPPORT CONSULTANT #[address] [address] PCP - General Certified Nurse Practitioner 10/07/18 02/10/23 Terry Anguiano DPM Podiatry 01/07/17 Ronnie Jamil MD Consulting Physician Neurology 03/22/17 10/04/24 documented as of this encounter
--- OUTSIDE RECORDS SUMMARY | 2025-03-30 17:06 | XMS_ITS | Encounter Summary ---
Author Organization [facility] Address [address] [facility] [place] [address] Phone Care Team Providers Care Color Specialist Name Role Phone Terry Anguiano Patricia MARC Unavailable [phone] Ronnie Jamil MD Unavailable [phone] James Pierce APRN, TRUCK BODY BUILDER Primary Care Pr ovider Reason for Visit * Reason Comments Medication Refill Encounter Details Date Type Department Care Team (Late st Contact Info) Description 08/24/2021 Refill [facility] - Family Medicine [facility] [address] [place] [id number] James Pierce, YG, TRUCK BODY BUILDER [address] [address] Medication Refill Social History Tobacco Use Types Packs/Day Years Used Date Smoking Tobacco: Light Smoker Cigarettes Last attempted t o quit: 07/28/2017 Smokeless Tobacco: Never Alcohol Use Standard Drinks/Week Comments No 0 (1 standard drink = 0.6 oz pur e alcohol) PHQ-2 Answer Date Recorded Total Score - Questions 1-9 1 05/0 04/2021 Sexually Active Control Partners Comments Not Currently Post-menopausal Male Comments No Sex and Gender Information Value Date Recorded Sex Assigned at Not on file Legal Sex Female 12:49 PM BLADE BONER Gender Identity Not on file Sexual Orientation Not on file 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 Not on file Not on file documented as of this encounter Miscellaneous Notes * Telephone Encounter - Fide Serna RN - 08/24/2021 3:19 PM CDT Name from pharmacy: ATORVASTATIN 40MG TABLETS Will file in chart as: atorvastatin (LIPITOR) 40 MG Tablet The original prescription was reordered on 08/24/2021 documented in this encounter Plan of Treatment Not on file documented as of this encounter Visit Diagnoses Diagnosis Mixed hyperlipidemia documented in this encounter Additional Health Concerns Assessment Noted Time PHQ-9 Depression Total Score: 1 03/23/20 21 3:00 PM CDT documented as of this encounter Care Teams Color Specialist Relationship Specialty Start Date End Date James Pierce APRN, TRUCK BODY BUILDER #[address] [address] PCP - General Certified Nurse Practitioner 10/07/18 02/10/23 Terry Anguiano DPM Podiatry 01/07/17 Ronnie Jamil MD Consulting Physician Neurology 03/22/17 10/04/24 documented as of this encounter
--- OUTSIDE RECORDS SUMMARY | 2025-03-30 17:06 | XMS_ITS | Clinical Summary ---
Author Organization [facility] Address [facility] [place] [address] Care Team Providers Care Recruiting Assistant Name Role Phone Frances Aliyah Rosemary HUDDLESTON Primary Care Provider [phone] Allergies Active Allergy Reactions Criticality Noted Date Comments Penicillins Rash Low 12/22/2024 Tape Rash Low 12/22/2024 Medications Acetaminophen 325 MG CapIndications:paula n Take 2 tablets by mouth 4 (four) times daily as needed. Indications: pain 12/22/19 25 Active albuterol sulfate HFA 108 (90 Base) MCG/ACT inhalerIndications :sob Inhale 2 puffs into the lungs every 6 (six) hours as needed. Indications: sob 12/22/19 25 Active amitriptyline (ELAVIL) 25 MG tabletIndications: depression Take 25 mg by mouth nightly at bedtime. Indications: depression 12/22/19 25 Active aspirin 81 MG chewable tabletIndications: blood thinner Chew 81 mg by mouth daily. Indications: blood thinner 12/22/19 25 Active atorvastatin (LIPITOR) 20 MG tabletIndications: HLD Take 40 mg by mouth daily. Indications: HLD 12/22/19 25 Active clopidogrel (PLAVIX) 75 MG tabletIndications: HLD Take 75 mg by mouth daily. Indications: HLD 12/22/19 25 Active cyclobenzaprine (FLEXERIL) 10 MG tabletIndications: pain management Take 10 mg by mouth 3 (three) times daily as needed. Indications: pain management 12/22/19 25 Active dicyclomine (BENTYL) 10 MG capsuleIndications :gi upset Take 20 mg by mouth 4 (four) times daily before meals and nightly. Indications: gi upset 12/22/19 25 Active hydrOXYzine (ATARAX) 25 MG tabletIndications: anxiety Take 25 mg by mouth every 6 (six) hours as needed. Indications: anxiety 12/22/19 25 Active magnesium oxide (MAG-OX) 400 MG tabletIndications: supplement Take 400 mg by mouth daily. Indications: supplement 12/22/19 25 Active methocarbamol (ROBAXIN) 750 MG TabIndications:paula n Take 1,500 mg by mouth 3 (three) times daily. Indications: pain 12/22/19 25 Active pantoprazole (PROTONIX) 40 MG packetIndications: GERD Take 40 mg by mouth before breakfast. Indications: GERD 12/22/19 25 Active polyethylene glycol (GLYCOLAX) packetIndications: Constipation Take 17 g by mouth daily. Indications: Constipation 12/22/19 25 Active pregabalin (LYRICA) 100 MG capsuleIndications :pain Take 100 mg by mouth daily. Indications: pain 12/22/19 25 Active Simethicone 80 MG TabIndications:gas Take 80 mg by mouth 4 (four) times daily. take 2 tablets 4x daily Indications: gas 12/22/19 25 Active sodium chloride 0.9 % solutionIndication s:sash technique for TPN administration Inject 10 mLs into the vein as needed. Indications: sash technique for TPN administration 12/22/19 25 Active Amino Acid Infusion in D14W (CLINIMIX/DEXTROSE , 07/01,) 8 % SolutionIndication s:supplementation/ nutrition Inject 1,700 mLs into the vein continuous. total Kcal-1425, infusion volume 1700 ml, cycle 12 hrs, rate 141.7 ml/hr via cadd pump. aminio acids 60 gm, dextroes 236 gm lipids 38 gm sodium 130 meq, potassium 60 meq calcium 4.6 meq mag 28 meq phos 24 mm chloride 178.8 meq acetate 52.8 meq tace elements: zinc 3 mg, copper 0.3 mg, manganese 55 mcg, selenium 60 mcg patient addative 10 ml of infuvite to be injected into tpn daily. Indications: supplementation/n utrition 12/22/19 25 Active Encounters Date Type Department Care Team Description 03/23/2025 12:41 PM CDT - 03/23/2025 11:59 PM CDT Hospital Encounter [facility] [address] [place] [address] Aliyah Daniels, Discharge Disposition: Home or Self Care (Routine Discharge) 03/23/2025 10:15 AM CDT Home Care Visit [address] [place] [address] [place] [address] Conchis Dominguez, RN SN HOME VISIT 03/23/2025 Orders Only [facility] [address] [place] [address] Aliyah Daniels, DO 03/16/2025 11:17 AM CDT - 03/16/2025 11:59 PM CDT Hospital Encounter [facility] [address] [facility] [place] [address] Aliyah Daniels, Discharge Disposition: Home or Self Care (Routine Discharge) 03/16/2025 10:45 AM CDT Home Care Visit [address] [place] [address] [place] [address] Conchis Dominguez RN SN HOME VISIT 03/16/2025 Orders Only [facility] [address] [place] [address] Aliyah Daniels, 03/16/2025 Orders Only [facility] [address] [place] [address] Aliyah Daniels, DO 03/09/2025 12:54 PM CDT - 03/09/2025 11:59 PM CDT Hospital Encounter [facility] [address] [place] [address] Aliyah Daniels, Discharge Disposition: Home or Self Care (Routine Discharge) 03/09/2025 11:00 AM CDT Home Care Visit [address] [place] [address] [place] [address] Conchis Dominguez RN SN HOME VISIT 03/09/2025 Orders Only [facility] [address] [place] [address] Aliyah Daniels DO 03/05/2025 12:37 PM CDT - 03/05/2025 11:59 PM CDT Hospital Encounter [facility] [address] [facility] [place] [address] Aliyah Daniels, DO Discharge Disposition: Home or Self Care (Routine Discharge) 03/05/2025 10:00 AM CDT Home Care Visit [address] [place] [address] [place] [address] Conchis Dominguez, RN SN HOME VISIT 03/05/2025 Orders Only [facility] [address] [facility] [place] [address] Aliyah Daniels DO 02/23/2025 12:03 PM CDT - 02/23/2025 11:59 PM CDT Hospital Encounter [facility] [address] [place] [address] Aliyah Daniels DO Discharge Disposition: Home or Self Care (Routine Discharge) 02/23/2025 10:30 AM CDT Home Care Visit [address] [address] Conchis Dominguez RN SN HOME VISIT 02/23/2025 Orders Only [facility] [address] [place] [address] Aliyah Daniels DO 02/16/2025 12:24 PM CDT - 02/16/2025 11:59 PM CDT Hospital Encounter [facility] [address] [place] [address] Aliyah Daniels DO Discharge Disposition: Home or Self Care (Routine Discharge) 02/16/2025 10:00 AM CDT Home Care Visit [address] [place] [address] [place] [address] Conchis Dominguez RN SN OASIS RECERTIFICATION 02/16/2025 Plan of Care Documentation [address] [place] [address] 02/16/2025 Home Care Visit [address] [address] Conchis Dominguez, RN [facility] 02/16/2025 Orders Only [facility] [address] [place] [address] Aliyah Daniels, DO 02/11/2025 Home Care Visit [address] [address] Conchis Dominguez RN SN TELEPHONE CALL 02/09/2025 10:20 AM CDT - 02/09/2025 11:59 PM CDT Hospital Encounter [facility] [address] [place] [address] Aliyah Daniels, Discharge Disposition: Home or Self Care (Routine Discharge) 02/09/2025 8:30 AM CDT Home Care Visit [address] [address] Monse Arevalo RN SN HOME VISIT 02/09/2025 Orders Only [facility] [address] [place] [address] Aliyah Daniels, DO 02/04/2025 2:37 PM CDT - 02/04/2025 11:59 PM CDT Hospital Encounter [facility] [address] Aliyah Daniels DO Discharge Disposition: Home or Self Care (Routine Discharge) 02/04/2025 1:00 PM CDT Home Care Visit [address] [place] [address] Coreen Brunson RN SN HOME PRN VISIT 02/04/2025 Orders Only [facility] [address] Aliyah Daniels DO 02/02/2025 11:23 AM CDT - 02/02/2025 11:59 PM CDT Hospital Encounter [facility] [place] [place] [address] Aliyah Daniels, Discharge Disposition: Home or Self Care (Routine Discharge) 02/02/2025 9:30 AM CDT Home Care Visit [address] [place] [address] [place] [address] River Nagy RN SN HOME VISIT 02/02/[address] [facility] [place] [address] Aliyah Daniels DO 01/26/2025 1:14 PM CDT - 01/26/2025 11:59 PM CDT Hospital Encounter [facility] [address] [place] [address] Aliyah Daniels DO Discharge Disposition: Home or Self Care (Routine Discharge) 01/26/2025 11:00 AM CDT Home Care Visit [address] [place] [address] Conchis Dominguez RN SN HOME VISIT 01/26/2025 Orders Only [facility] [address] [place] [address] Aliyah Daniels DO 01/19/2025 12:47 PM FURNACE MECHANIC HELPER - 01/19/2025 11:59 PM FURNACE MECHANIC HELPER Hospital Encounter [facility] [address] [facility] [place] [address] Aliyah Daniels DO Discharge Disposition: Home or Self Care (Routine Discharge) 01/19/2025 11:00 AM FURNACE MECHANIC HELPER Home Care Visit [address] [place] [address] [place] [address] Conchis Dominguez RN SN HOME VISIT 01/19/2025 Orders Only [facility] [address] [facility] [place] [address] Aliyah Daniels DO 01/15/2025 1:26 PM FURNACE MECHANIC HELPER - 01/15/2025 11:59 PM FURNACE MECHANIC HELPER Hospital Encounter [facility] [address] [facility] [place] [address] Elis Louis MD Discharge Disposition: Home or Self Care (Routine Discharge) 01/15/2025 11:00 AM FURNACE MECHANIC HELPER Home Care Visit [address] [address] Conchis Dominguez, RN SN HOME VISIT 01/15/2025 Home Care Visit [address] [address] Monse Arevalo RN CASE COMMUNICATION 01/15/2025 Orders Only [facility] [address] [facility] [place] [address] Elis Louis MD 2025 11:44 AM FURNACE MECHANIC HELPER - 2025 11:59 PM FURNACE MECHANIC HELPER Hospital Encounter [facility] [address] [facility] [place] [address] Elis Louis MD Discharge Disposition: Home or Self Care (Routine Discharge) 2025 10:00 AM FURNACE MECHANIC HELPER Home Care Visit [address] [address] Conchis Dominguez RN SN HOME VISIT 2025 Orders Only [facility] [address] [facility] [place] [address] Elis Louis MD 01/08/2025 1:00 PM FURNACE MECHANIC HELPER Home Care Visit [address] [place] [address] Dacia Perez RN SN HOME VISIT 01/05/2025 10:36 AM FURNACE MECHANIC HELPER - 01/05/2025 11:59 PM FURNACE MECHANIC HELPER Hospital Encounter [facility] [address] [place] [address] Elis Louis MD Discharge Disposition: Home or Self Care (Routine Discharge) 01/05/2025 10:00 AM FURNACE MECHANIC HELPER Home Care Visit [address] [place] [address] [place] [address] Conchis Dominguez RN SN HOME VISIT 01/05/2025 Orders Only [facility] [address] [place] [address] Elis Louis MD 01/01/2025 10:49 AM FURNACE MECHANIC HELPER - 01/01/2025 11:59 PM FURNACE MECHANIC HELPER Hospital Encounter [facility] [address] [place] [address] Elis Louis MD Discharge Disposition: Home or Self Care (Routine Discharge) 01/01/2025 9:00 AM FURNACE MECHANIC HELPER Home Care Visit [address] [place] [address] [place] [address] Conchis Dominguez RN SN HOME VISIT 01/01/2025 Orders Only [facility] [address] [place] [address] Elis Louis MD from Last 3 Months Social History Tobacco Use Types Packs/Day Years Used Date Smoking Tobacco: Never Assessed OASIS D0700: Social Isolation Answer Da te Recorded Frequency of experiencing loneliness or isolatio n Never 12/22/2024 OASIS A1250: Transportation Answer Date Recorded Lack of Transportation (Medical) Yes 12/22/2024 Lack of Transportation (Non-Medical) No 12/22/2024 Patient Unable or Declines to Respond No 12/22/2024 OASIS B1300: Health Literacy Answer Yeyo e Recorded Frequency of needing help to read materials from doctor or pharmacy Never 12/22/2024 Comments Unknown Sex and Gender Information Value Date Recorded Sex Assigned at Not on file Legal Sex Female 8:01 PM CDT Gender Identity Not on file Sexual Orientation Not on file Last Filed Vital Signs Vital Sign Reading Time Taken Comments Blood Pressure 106/66 03/23/2025 10:35 AM CDT Pulse 72 03/23/2025 10:35 AM CDT Temperature 36.7 C (98.1 F) 02/09/2025 8:42 AM CDT Respiratory Rate 18 03/23/2025 10:35 AM CDT Oxygen Saturation 96% 03/23/2025 10:35 AM CDT Inhaled Oxygen Concentration - - Weight - - Height - - Body Mass Index - - Plan of Treatment Upcoming Encounters Date Type Department Care Team (Late st Contact Info) Description 04/02/2025 9:45 AM CDT Home Care Visit [facility] Home Care [address] [place] [address] Conchis Dominguez, RN 04/07/2025 9:00 AM CDT Home Care Visit [facility] [address] [address] Conchis Dominguez, RN 04/13/2025 10:15 AM CDT Home Care Visit [facility] [address] [address] Conchis Dominguez, RN 04/20/2025 10:30 AM CDT Appointment [facility] Care [address] [facility] [place] [address] Conchis Dominguez, RN Health Maintenance Due Date Last Done Comments Cervical Cancer Screening Pap Smear (Age 30 to 64) Every 3 Years 1968 Colorectal Cancer Screening Colonoscopy (10 Years) 1968 Annual Physical 1971 Hepatitis C 1986 Cervical Cancer Screening Pap with HPV Testing (Age 30 to 64) Every 5 Years 1998 Cervical Cancer Screening with HPV 1998 Zoster Vaccines (1 of 2) 2018 Mammogram Screening 04/03/2023 04/03/2021 Hepatitis B Vaccines (2 of 3 - 19+ 3-dose series) 01/14/2024 12/17/2023 Pneumococcal Vaccine: 50+ Years (3 of 3 - PCV20 or PCV21) 01/14/2024 01/14/2019, 10/07/2018 COVID-19 Vaccine (3 - season) 2024 04/26/2021, 03/29/2021 DTaP, Tdap and Td Vaccines (6 - Td or Tdap) 12/17/2033 12/17/2023, 09/22/1981, 11/17/1972, Additional history exists Meningococcal B Vaccine Aged Out No l onger eligible based on patient's age to complete this topic Meningococcal Vaccine Aged Out No megan linh eligible based on patient's age to complete this topic RSV Immunizations Under 20 Months Aged Out No longer eligible based on patient's age to complete this topic Procedures Procedure Name Priority Date/Time Associated Diagnosis Comments COMPREHENSIVE METABOLIC PANEL Routine 03/23/2025 11:00 AM CDT Alimentary edema (HHS/HCC) MAGNESIUM Routine 03/23/2025 11:00 AM CDT Alimentary edema (HHS/HCC) PHOSPHORUS, INORGANIC PHOSPHATE Routine 03/23/2025 11:00 AM CDT Alimentary edema (HHS/HCC) COMPREHENSIVE METABOLIC PANEL Routine 03/16/2025 9:00 AM CDT Alimentary edema (HHS/HCC) MAGNESIUM Routine 03/16/2025 9:00 AM CDT Alimentary edema (HHS/HCC) PHOSPHORUS, INORGANIC PHOSPHATE Routine 03/16/2025 9:00 AM CDT Alimentary edema (HHS/HCC) COMPREHENSIVE METABOLIC PANEL Routine 03/09/2025 11:20 AM CDT Alimentary edema (HHS/HCC) MAGNESIUM Routine 03/09/2025 11:20 AM CDT Alimentary edema (HHS/HCC) PHOSPHORUS, INORGANIC PHOSPHATE Routine 03/09/2025 11:20 AM CDT Alimentary edema (HHS/HCC) CBC W/DIFF AUTOMATED Routine 03/09/2025 11:20 AM CDT Alimentary edema (HHS/HCC) COMPREHENSIVE METABOLIC PANEL Routine 03/05/2025 10:20 AM CDT Alimentary edema (HHS/HCC) MAGNESIUM Routine 03/05/2025 10:20 AM CDT Alimentary edema (HHS/HCC) PHOSPHORUS, INORGANIC PHOSPHATE Routine 03/05/2025 10:20 AM CDT Alimentary edema (HHS/HCC) COMPREHENSIVE METABOLIC PANEL Routine 02/23/2025 10:40 AM CDT Alimentary edema (HHS/HCC) Moderate malnutrition (HHS/HCC) MAGNESIUM Routine 02/23/2025 10:40 AM CDT Alimentary edema (HHS/HCC) Moderate malnutrition (HHS/HCC) PHOSPHORUS, INORGANIC PHOSPHATE Routine 02/23/2025 10:40 AM CDT Alimentary edema (HHS/HCC) Moderate malnutrition (HHS/HCC) COMPREHENSIVE METABOLIC PANEL Routine 02/16/2025 10:15 AM CDT Alimentary edema (HHS/HCC) MAGNESIUM Routine 02/16/2025 10:15 AM CDT Alimentary edema (HHS/HCC) PHOSPHORUS, INORGANIC PHOSPHATE Routine 02/16/2025 10:15 AM CDT Alimentary edema (HHS/HCC) PHOSPHORUS, INORGANIC PHOSPHATE Routine 02/09/2025 8:45 AM CDT Alimentary edema (HHS/HCC) COMPREHENSIVE METABOLIC PANEL Routine 02/09/2025 8:45 AM CDT Alimentary edema (HHS/HCC) MAGNESIUM Routine 02/09/2025 8:45 AM CDT Alimentary edema (HHS/HCC) COMPREHENSIVE METABOLIC PANEL Routine 02/04/2025 1:31 PM CDT Moderate malnutrition (HHS/HCC) MAGNESIUM Routine 02/04/2025 1:31 PM CDT Moderate malnutrition (HHS/HCC) PHOSPHORUS, INORGANIC PHOSPHATE Routine 02/04/2025 1:31 PM CDT Moderate malnutrition (HHS/HCC) MAGNESIUM Routine 01/26/2025 11:10 AM CDT Alimentary edema (HHS/HCC) COMPREHENSIVE METABOLIC PANEL Routine 01/26/2025 11:10 AM CDT Alimentary edema (HHS/HCC) PHOSPHORUS, INORGANIC PHOSPHATE Routine 01/26/2025 11:10 AM CDT Alimentary edema (HHS/HCC) COMPREHENSIVE METABOLIC PANEL Routine 01/19/2025 10:40 AM FURNACE MECHANIC HELPER Alimentary edema (HHS/HCC) MAGNESIUM Routine 01/19/2025 10:40 AM FURNACE MECHANIC HELPER Alimentary edema (HHS/HCC) PHOSPHORUS, INORGANIC PHOSPHATE Routine 01/19/2025 10:40 AM FURNACE MECHANIC HELPER Alimentary edema (HHS/HCC) BASIC METABOLIC PANEL Routine 2025 10:30 AM FURNACE MECHANIC HELPER Alimentary edema (HHS/HCC) CBC W/DIFF AUTOMATED Routine 2025 10:30 AM FURNACE MECHANIC HELPER Alimentary edema (HHS/HCC) MAGNESIUM Routine 2025 10:30 AM FURNACE MECHANIC HELPER Alimentary edema (HHS/HCC) PHOSPHORUS, INORGANIC PHOSPHATE Routine 2025 10:30 AM FURNACE MECHANIC HELPER Alimentary edema (HHS/HCC) BASIC METABOLIC PANEL Routine 01/05/2025 9:30 AM FURNACE MECHANIC HELPER Alimentary edema (HHS/HCC) MAGNESIUM Routine 01/05/2025 9:30 AM FURNACE MECHANIC HELPER Alimentary edema (HHS/HCC) PHOSPHORUS, INORGANIC PHOSPHATE Routine 01/05/2025 9:30 AM FURNACE MECHANIC HELPER Alimentary edema (HHS/HCC) BASIC METABOLIC PANEL Routine 01/01/2025 10:50 AM FURNACE MECHANIC HELPER Alimentary edema (HHS/HCC) MAGNESIUM Routine 01/01/2025 10:50 AM FURNACE MECHANIC HELPER Alimentary edema (HHS/HCC) PHOSPHORUS, INORGANIC PHOSPHATE Routine 01/01/2025 10:50 AM FURNACE MECHANIC HELPER Alimentary edema (HHS/HCC) from Last 3 Months Results * (ABNORMAL) COMPREHENSIVE METABOLIC PANEL (03/23/2025 11:00 AM CDT) Only the most recent of10 resultswithin the time period is included. Pathologist [facility] GLUCOSE 148(H) 70 - 99 MG/DL 03/23/2025 1:22 PM CDT [facility] BUN 18 7 - 18 MG/DL 03/23/2025 1:22 PM CDT [facility] CREATININE S/P/B 0.71 0.55 - 1.02 MG/DL 03/23/2025 1:22 PM CDT [facility] SODIUM S/P/B 139 136 - 145 MMOL/L 03/23/2025 1:22 PM T [facility] POTASSIUM S/P/B 3.8 3.5 - 5.1 MMOL/L 03/23/2025 1:22 PM T [facility] CHLORIDE S/P/B 101 100 - 108 MMOL/L 03/23/2025 1:22 PM T [facility] CO2 26.8 21 - 32 MMOL/L 03/23/2025 1:22 PM T [facility] CALCIUM S/P/B 9.4 8.5 - 10.1 MG/DL 03/23/2025 1:22 PM CDT [facility] BILIRUBIN TOTAL S/P/B 0.2 0.2 - 1.2 MG/DL 03/23/2025 1:22 PM [facility] TOTAL PROTEIN S/P/B 7.7 6.4 - 8.2 G/DL 03/23/2025 1:22 PM [facility] ALBUMIN S/P/B 3.1(L) 3.4 - 5.0 G/DL 03/23/2025 1:22 PM [facility] AST 28 15 - 37 U/L 03/23/2025 1:22 PM [facility] ALT 49 14 - 55 U/L 03/23/2025 1:22 PM [facility] ALKALINE PHOSPHATASE S/P/B 128 50 - 136 U/L 03/23/2025 1:22 PM [facility] ANION GAP 11.2 5 - 15 MMOL/L 03/23/2025 1:22 PM [facility] BUN CREATININE RATIO 25.4 6 - 26 03/23/2025 1:22 PM [facility] A/G RATIO 0.7(L) 1.0 - 2.0 RATIO 03/23/2025 1:22 PM [facility] GFR ESTIMATE >90 >90 ML/MIN/1.7 3 M2 03/23/2025 1:22 PM [facility] Comment: NOTE: eGFR is not calculated for patients <18 years of age. This is an estimated GFR calculation using the new CKD EPI creatinine equation without race and so does not require a correction factor for race. This estimated GFR should not be used for calculating drug doses. 03/23/2025 11:0 0 AM CDT us Aliyah Daniels DO LABORATORY Final Result [facility] [address] [place] [id number], [place] [phone] * PHOSPHORUS, INORGANIC PHOSPHATE (03/23/2025 11:00 AM CDT) Only the most recent of13 resultswithin the time period is included. PHOSPHORUS 3.7 2.5 - 4.9 MG/DL 03/23/2025 1:22 PM CDT [facility] 03/23/2025 11:0 0 AM CDT [employer] DO LABORATORY Final Result [facility] [address] [place] [address], [place] [phone] * MAGNESIUM (03/23/2025 11:00 AM CDT) Only the most recent of13 resultswithin the time period is included. MAGNESIUM 2.3 1.8 - 2.4 MG/DL 03/23/2025 1:22 PM CDT [facility] 03/23/2025 11:0 0 AM CDT [employer] DO LABORATORY Final Result Performing Organization Address City/[facility]/ZIP Co de Phone Number [facility] [address] [place] [address], [place] [phone] * (ABNORMAL) CBC W/DIFF AUTOMATED (03/09/2025 11:20 AM CDT) Only the most recent of2 resultswithin the time period is included. WBC 6.62 4.4 - 11.0 x10'3/uL 03/09/2025 12:59 PM CDT [facility] RBC 3.99(L) 4.50 - 5.10 x10'6/uL 03/09/2025 12:59 PM CDT [facility] HGB 12.4 12.3 - 15.3 G/DL 03/09/2025 12:59 PM CDT [facility] HCT 37.5 35.9 - 44.6 % 03/09/2025 12:59 PM CDT [facility] MCV 94.0 80.0 - 96.0 FL 03/09/2025 12:59 PM CDT [facility] MCH 31.1(H) 25.3 - 30.9 PG 03/09/2025 12:59 PM CDT [facility] MCHC 33.1 31.0 - 34.1 G/DL 03/09/2025 12:59 PM CDT [facility] RDW 13.1 12.4 - 15.1 % 03/09/2025 12:59 PM CDT [facility] PLT 277 151 - 353 x10'3/uL 03/09/2025 12:59 PM T [facility] MPV 10.7 9.6 - 12.0 FL 03/09/2025 12:59 PM CDT [facility] RBC MORPHOLOGY NORMAL 03/09/2025 12:59 PM T [facility] PLT MORPH. NORMAL 03/09/2025 12:59 PM CDT [facility] WBC MORPHOLOGY NORMAL 03/09/2025 12:59 PM T [facility] LYMPHOCYTES % 43.1 15.8 - 45.0 % 03/09/2025 12:59 PM CDT [facility] NEUTROPHILS % 47.4 42.1 - 71.9 % 03/09/2025 12:59 PM CDT [facility] MONOCYTES % 7.6 5.7 - 12.5 % 03/09/2025 12:59 PM CDT [facility] EOSINOPHILS 1.1 0.0 - 5.6 % 03/09/2025 12:59 PM CDT [facility] BASOPHILS 0.5 0.0 - 1.3 % 03/09/2025 12:59 PM CDT [facility] ABS. NEUTROPHILS 3.15 1.40 - 6.00 x10'3/uL 03/09/2025 12:59 PM CDT [facility] IMMATURE GRANS % 0.3 0.0 - 0.5 % 03/09/2025 12:59 PM CDT [facility] ABS. LYMPHOCYTES 2.85 0.80 - 4.70 x10'3/uL 03/09/2025 12:59 PM CDT [facility] 03/09/2025 11:2 0 AM CDT Aliyah Daniels DO LABORATORY Final Result [facility] [address] [place] [address], [place] [phone] * (ABNORMAL) BASIC METABOLIC PANEL (2025 10:30 AM FURNACE MECHANIC HELPER) Only the most recent of3 resultswithin the time period is included. GLUCOSE 155(H) 70 - 99 MG/DL 2025 12:10 PM FURNACE MECHANIC HELPER [facility] BUN 17 7 - 18 MG/DL 2025 12:10 PM FURNACE MECHANIC HELPER [facility] CREATININE S/P/B 0.62 0.50 - 1.20 MG/DL 2025 12:10 PM FURNACE MECHANIC HELPER [facility] SODIUM S/P/B 141 136 - 145 MMOL/L 2025 12:10 PM FURNACE MECHANIC HELPER [facility] POTASSIUM S/P/B 4.7 3.5 - 5.1 MMOL/L 2025 12:10 PM FURNACE MECHANIC HELPER [facility] CHLORIDE S/P/B 103 100 - 108 MMOL/L 2025 12:10 PM FURNACE MECHANIC HELPER [facility] CO2 26.9 21.0 - 32.0 MMOL/L 2025 12:10 PM FURNACE MECHANIC HELPER [facility] CALCIUM S/P/B 8.8 8.5 - 10.1 MG/DL 2025 12:10 PM FURNACE MECHANIC HELPER [facility] ANION GAP 11.1 5.0 - 15.0 MMOL/L 2025 12:10 PM FURNACE MECHANIC HELPER [facility] BUN CREATININE RATIO 27.4(H) 6 - 26 2025 12:10 PM FURNACE MECHANIC HELPER [facility] GFR ESTIMATE >90 >90 ML/MIN/1.7 3 M2 2025 12:10 PM [facility] Comment: NOTE: eGFR is not calculated for patients <18 years of age. This is an estimated GFR calculation using the new CKD EPI creatinine equation without race and so does not require a correction factor for race. This estimated GFR should not be used for calculating drug doses. 2025 10:3 0 AM [employer] Elis Louis MD LABORATORY Final Result [facility] [address] [place] [address], from Last 3 Months Insurance [employer] Advance Directives * Full Code (Latest Code Status on File) Date Activated Date Inactivated Comments 12/22/2024 9:09 PM Care Teams Recruiting Assistant Relationship Specialty [place] [address] [place] [address] [place] [address] [id number] PCP - General FAMILY PRACTICE 12/21/24
--- OUTSIDE RECORDS SUMMARY | 2025-03-30 17:06 | XMS_ITS | Encounter Summary ---
Author Organization [facility] Address [address] [place] [address] Care Team Providers Care Veterinary Receptionist Name Role Phone Aliyah Daniels DO Primary Care Provider [phone] Encounter Details Date Type Department Care Team (Late st Contact Info) Description 03/23/2025 Orders Only [facility] [address] [place] [address] Aliyah Daniels DO [address] [facility] [address] [place] [address] Social History Tobacco Use Types Packs/Day Years [...] as of this encounter Plan of Treatment Upcoming Encounters Date Type Department Care Team (Late st Contact Info) Description 04/02/2025 9:45 AM CDT Home Care Visit [facility] Care [address] [place] [address] [place] [address] Conchis Dominguez RN 04/07/2025 9:00 AM CDT Home Care Visit [facility] Care [address] [place] [address] [place] [address] Conchis Dominguez RN 04/13/2025 10:15 AM CDT Home Care Visit [address] [place] [address] [place] [address] Conchis Dominguez RN 04/20/2025 10:30 AM CDT Appointment [address] [place] [address] [place] [address] Conchis Dominguez, RN documented as of this encounter Results * PHOSPHORUS, INORGANIC PHOSPHATE (03/23/2025 11:00 AM CDT) PHOSPHORUS 3.7 2.5 - 4.9 MG/DL 03/23/2025 1:22 PM CDT [facility] 03/23/2025 11:0 0 AM CDT us Ly A Frances DO LABORATORY Final Result Performing Organization Address City/[facility]/ZIP Co de Phone Number [facility] [address] [place] [address], [place] [phone] * MAGNESIUM (03/23/2025 11:00 AM CDT) MAGNESIUM 2.3 1.8 - 2.4 MG/DL 03/23/2025 1:22 PM CDT [facility] 03/23/2025 11:0 0 AM CDT us Aliyah A Grundy DO LABORATORY Final Result Performing Organization Address [facility]/ZIP Co de Phone Number [facility] [address] [place] [address], [place] [phone] * (ABNORMAL) COMPREHENSIVE METABOLIC PANEL (03/23/2025 11:00 AM CDT) [facility] [address] GLUCOSE 148(H) 70 - 99 MG/DL 03/23/2025 1:22 PM [facility] BUN 18 7 - 18 MG/DL 03/23/2025 1:22 PM [facility] CREATININE S/P/B 0.71 0.55 - 1.02 MG/DL 03/23/2025 1:22 PM T [facility] SODIUM S/P/B 139 136 - 145 MMOL/L 03/23/2025 1:22 PM [facility] POTASSIUM S/P/B 3.8 3.5 - 5.1 MMOL/L 03/23/2025 1:22 PM [facility] CHLORIDE S/P/B 101 100 - 108 MMOL/L 03/23/2025 1:22 PM [facility] CO2 26.8 21 - 32 MMOL/L 03/23/2025 1:22 PM [facility] CALCIUM S/P/B 9.4 8.5 - 10.1 MG/DL 03/23/2025 1:22 PM [facility] BILIRUBIN TOTAL S/P/B 0.2 0.2 - 1.2 MG/DL 03/23/2025 1:22 PM [facility] TOTAL PROTEIN S/P/B 7.7 6.4 - 8.2 G/DL 03/23/2025 1:22 PM [facility] ALBUMIN S/P/B 3.1(L) 3.4 - 5.0 G/DL 03/23/2025 1:22 PM [facility] AST 28 15 - 37 U/L 03/23/2025 1:22 PM [facility] ALT 49 14 - 55 U/L 03/23/2025 1:22 PM CDT [facility] ALKALINE PHOSPHATASE S/P/B 128 50 - 136 U/L 03/23/2025 1:22 PM T [facility] ANION GAP 11.2 5 - 15 MMOL/L 03/23/2025 1:22 PM T [facility] BUN CREATININE RATIO 25.4 6 - 26 03/23/2025 1:22 PM T [facility] A/G RATIO 0.7(L) 1.0 - 2.0 RATIO 03/23/2025 1:22 PM T [facility] GFR ESTIMATE >90 >90 ML/MIN/1.7 3 M2 03/23/2025 1:22 PM T [facility] Comment: NOTE: eGFR is not calculated for patients <18 years of age. This is an estimated GFR calculation using the new CKD EPI creatinine equation without race and so does not require a correction factor for race. This estimated GFR should not be used for calculating drug doses. 03/23/2025 11:0 0 AM CDT us Aliyah Daniels DO LABORATORY Final Result Performing Organization Address City/State/[facility] Co de Phone Number [facility] [address] [place] [address], documented in this encounter Visit Diagnoses Diagnosis Alimentary edema (HHS/HCC)- Primary Other severe protein-calorie malnutrition documented in this encounter Care Teams Veterinary Receptionist Relationship Specialty Start Date End Date Aliyah Daniels DO [facility] [address] [place] [address] PCP - General FAMILY PRACTICE 12/21/24 documented as of this encounter
--- OUTSIDE RECORDS SUMMARY | 2025-03-30 17:06 | XMS_ITS | Clinical Summary ---
Author Organization [facility] al Address [address] [place] [address] Care Team Providers Care Medical Officer Name Role Phone Elis Louis MD PhD Unavailable + Aliyah Daniels DO Primary Care Provider Allergies Active Allergy Reactions Criticality Noted Date Comments Adhesive Tape-Silicones Rash,Other (See comments) High 01/22/2017 rips my skin off and skin blisters Latex Hives,Other (See comments),Rash High 11/22/2016 One touch and she will break out with blister on the location of contact Penicillins Rash Medium 06/06/2019 Medications magnesium oxide 400 mg magnesium capsule Take by mouth daily Active albuterol HFA (PROVENTIL HFA,VENTOLIN HFA,PROAIR HFA) 90 mcg/actuation inhaler Inhale 2 puffs every 6 (six) hours as needed for wheezing Active atorvastatin (LIPITOR) 40 mg tablet TAKE ONE (1) TABLET BY MOUTH EVERY DAY 9 Active aspirin 81 mg enteric coated tablet Take 1 tablet (81 mg total) by mouth daily 0 Active acetaminophen (TYLENOL) 325 mg tabletIndicatio ns:Fever,Pain Take 2 tablets (650 mg total) by mouth every 6 (six) hours 5 Active amitriptyline (ELAVIL) 25 mg tablet Take 1 tablet (25 mg total) by mouth nightly 90 tablet 5 12/22/19 26 Active dicyclomine (BENTYL) 20 mg tablet Take 1 tablet (20 mg total) by mouth 4 (four) times a day before meals and nightly 120 tablet 5 12/22/19 26 Active hydrOXYzine (ATARAX) 25 mg tablet Take 1 tablet (25 mg total) by mouth every 6 (six) hours as needed for anxiety 20 tablet [address] (PROTONIX) 40 mg EC tabletIndicatio ns:Treatment of Non-Bleeding Gastric Disorder Take 1 tablet (40 mg total) by mouth daily 30 tablet 5 12/23/19 26 Active polyethylene glycol (MIRALAX) 17 gram/dose bulk powderIndicatio ns:constipation Take 17 g by mouth daily 5 Active simethicone (MYLICON) 80 mg chewable tablet Take 2 tablets (160 mg total) by mouth 4 (four) times a day 20 tablet 5 Active sodium chloride 0.9% injection Administer 0.5-20 mL into catheter as needed for line care 5 Active sodium chloride 0.9% injectionIndica tions:Flushing Administer 0.5-20 mL into catheter every 8 (eight) hours 5 Active TPN AT DISCHARGE Infuse into a venous catheter continuously See AVS for most recent TPN formula. 5 Active clopidogreL (PLAVIX) 75 mg tabletIndicatio ns:Chronic mesenteric ischemia Take 1 tablet (75 mg total) by mouth daily 90 tablet 1 5 Active cyclobenzaprine (FLEXERIL) 10 mg tablet Take 1 tablet (10 mg total) by mouth 2 (two) times a day as needed for muscle spasms 60 tablet 1 5 Active traZODone (DESYREL) 50 mg tablet Take 1 tablet (50 mg total) by mouth nightly as needed for sleep 90 tablet 1 5 Active pregabalin (LYRICA) 75 mg capsuleIndicati ons:Neuropathy of both feet Take 1 capsule (75 mg total) by mouth 3 (three) times a day 90 capsule 5 Active Active Problems Problem Noted Date Diagnosed Date Former smoker 12/25/2024 Chronic pain 12/18/2024 Assessment & Plan (12/22/2024 7:44 AM HEALTH SAFETY COORDINATOR): 2/2 chronic mesenteric ischemia. -previously on oxy but has since been stopped and switched to tramadol. -YRN tylenol, lidocaine patches, methocarbamol, lyrica Housing instability 12/06/2024 Assessment & Plan (12/22/2024 7:44 AM HEALTH SAFETY COORDINATOR): - Patient stated she would be evicted if she did not pay her rent by the end of the month, but is unsure how she will pay since she is in the hospital--> now has extension until 12/22 -also nephew going to buy her a mini fridge for her to keep in her room for her supplies. -patient has also applied for assistance with rent and utilities for the future - Consulted social work for possible resources Abdominal pain 12/04/2024 Severe protein-calorie malnutrition 12/04/2024 Assessment & Plan (12/22/2024 7:44 AM HEALTH SAFETY COORDINATOR): Not able to eat due to abd pain. Recorded BMI 14.62. Prealbumin 21. Meets criteria for severe malnutrition - Consulted nutrition team - PICC line placed, TPN daily - S/P High dose IV thiamine. MVI per TPN. - cont diet Occlusion of subclavian artery 10/10/2020 Overview (10/10/2020): Added automatically from request for surgery [id number] Chronic mesenteric ischemia 09/26/2020 Assessment & Plan (12/22/2024 7:43 AM HEALTH SAFETY COORDINATOR): Most recently underwent repeat intervention in September 2020 which included stenting of both the celiac and superior mesenteric arteries as well as recanalization and stenting of the left subclavian artery. Presented to [facility] on 12/03 with worsening abdominal pain over the past 1-2 months. Imaging showed atherosclerosis of aorta and stenosis right renal artery - CTA here occlusion/distal reconstitution of SMA, severe stenosis of celiac stent - all chronic appearing. No ischemic bowel. - Lactate normal 12/07 - Heparin gtt, ASA preop - 12/09: s/p celiac stent via left brachial cutdown - Now ASA, plavix - Continue mechanical soft diet, but patient still not taking in enough. Continue TPN for now. RD recommends TPN at home for ongoing adequate nutrition -obtained mesenteric duplex on 12/18 that showed patent stents. Coronary artery disease invo lving [place] coronary artery of [place] heart without angina pectoris 07/19/2020 Overview (07/19/2020): Added automatically from request for surgery [id number] Assessment & Plan (12/22/2024 7:44 AM HEALTH SAFETY COORDINATOR): Heart cath on 10/11/20 that showed lesion assessment showing hemodynamically significant stenosis across the combination of the left main and the left anterior descending stenoses as described. However, insignificant across the left main alone underwent successful stenting of the mid left anterior descending, using 2.5 x 12 mm Synergy stent. - Cont ASA, plavix. PVD (peripheral vascular disease) 07/19/2020 Overview (07/19/2020): Added automatically from request for surgery [id number] Assessment & Plan (12/22/2024 7:44 AM HEALTH SAFETY COORDINATOR): Follows with Dr Kathleen (Cardiology Consults of [facility]). Reports chronic bilateral LE claudication R>L. S/p angio 07/2020 with successful recanalization, angioplasty and stenting of the right common iliac artery with deployment of 2 overlapping 7 mm self-expanding stents and successful stenting of the L external iliac. -Q4 NV checks -Continue ASA, plavix resumed post op. Resolved Problems Problem Noted Date Diagnosed Date Resolved Date Severe malnutrition 12/16/2024 12/18/19 25 Mesenteric ischemia, chronic 10/10/2020 12/18/2024 Overview (10/10/2020): Added automatically from request for surgery [id number] Encounters Date Type Department Care Team Description 03/23/2025 Orders Only [facility] Health Information Management [address] [place] [address] Aliyah Daniels DO 03/17/2025 Documentation [facility] Home Care Services [address] [place] [address] [address] [place] [phone] Dorina Downing, RD 03/16/2025 Orders Only [facility] Health Information Management [address] [place] [address] Aliyah Daniels, DO 03/09/2025 Orders Only [facility] Health Information Management [address] [place] [address] Aliyah Daniels, DO 03/04/2025 Telephone [facility] Surgery [address] [facility] [address] 1 [place] [address] Aneta Mayer Appointment 02/23/2025 Orders Only [facility] Health Information Management [address] [place] [address] Aliyah Daniels, DO 02/15/[address] [place] [phone] Aliyah Daniels, Med Refill 02/11/2025 12:45 PM CDT Office Visit [address] [place] [phone] Aliyah Daniels, Severe malnutrition (Primary Dx); On total parenteral nutrition (TPN); Chronic mesenteric ischemia; Neuropathy of both feet 02/11/[address] [place] [phone] Aliyah Daniels, Medical Question/Miscellaneo us 02/10/2025 Documentation [facility] Home Care Services [address] [facility] [address] [place] [address] Dorina Downing, RD 02/04/2025 Orders Only [facility] Health Information Management [address] [place] [address] Aliyah Daniels, 01/26/2025 Orders Only [facility] Health Information Management [address] [place] [address] Aliyah Daniels, DO 01/19/2025 Orders Only [facility] Health Information Management [address] [place] [address] Aliyah Daniels, DO 01/18/2025 Telephone [facility] Medicine [address] [facility] [address] [place] [address] Aliyah Daniels, DO Medical Question/Miscellaneo us 01/13/2025 Documentation [facility] Home Care Services [address] [place] [address] [address] [place] [address] Dorina Downing, ROSSY 01/11/2025 Telephone [facility] Medicine [address] [facility] [address] [place] [address] Aliyah Daniels, DO Medical Question/Miscellaneo us 01/08/2025 Orders Only [facility] Vascular Surgery [address] [facility] [address] [place] [address] Elis Louis MD PhD Chronic mesenteric ischemia (Primary Dx) from Last 3 Months Immunizations Immunization Administration Dates Next Due DTaP, Unspecified 11/17/1972, 1,11/17/1969,11/17 Hep A, Adult 12/17/2023 Hep B Vaccine 12/17/2023 Influenza, Quadrivalent, Spl it, Preservative Free, Intramuscular 12/17/2023,09/12/2022,02/21/2022 Influenza, Trivalent, Preser vative Free, Intramuscular 12/22/2024 MMR 12/17/2023 Mumps 11/17/1973 Pneumococcal Conjugate PCV 13 10/07/2018 Pneumococcal Polysaccharide PPV23 01/14/2019 Td, Unspecified 09/22/1981 Tdap 12/17/2023 Varicella 12/17/2023 Surgical History Surgery Date Site/Laterality Comments CORONARY ANGIOPLASTY WITH STENT PLACEMENT AORTA - SUPERIOR MESENTERIC ARTERY BYPASS GRAFT 11/18/2019 - 11/17/2020 RENAL ARTERY STENT SUBCLAVIAN STENT PLACEMENT Right OTHER SURGICAL HISTORY Bilateral leg stents per pt CARPAL TUNNEL RELEASE TRIGGER FINGER RELEASE CYST REMOVAL Left hand Medical History Medical History Date Comments Macular degeneration Fibromyalgia GERD (gastroesophageal reflux disease) Anxiety Depression Dysmenorrhea Heart disease Hypertension Chronic kidney disease Menstrual problem Family History Medical History Relation Name Comments Heart attack Father Julius [place] Arthritis Mother Shalonda Mar[place] COPD Mother Shalonda Salas Depression Mother Shalonda Salas Early Mother Shalonda Salas Heart attack Mother Shalonda Salas Heart disease Mother Shalonda Salas Hyperlipidemia Mother Shalonda Salas Mental illness Mother Shalonda Salas Anesthesia problems Neg Hx Relation Name Status Comments Father Julius Salas Mother Shalonda Salas Social History Tobacco Use Types Packs/Day Years Used Date Smoking Tobacco: Former Cigarettes 0.5 34.6 1 986 - 07/06/2020 Smokeless Tobacco: Never AUDIT-C Answer Date Recorded Q1: How often do you have a drink containing alcohol? Never 12/09/2024 Q2: How many drinks containi ng alcohol do you have on a typical day when you are drinking? Patient does not drink Q3: How often do you have si x or more drinks on one occasion? Never 12/09/2024 PHQ-2 Answer Date Recorded PHQ-2 Total Score (If total score is 3 or more points, staff should administer the PHQ-9) 0 12/23/2024 Personal Safety Answer Date Recorded Have you ever been in or are you currently in a harmful physical or emotional relationship or is someone making you feel afraid or unsafe? Denies 12/09/2024 Comments Unknown Sex and Gender Information Value Date Recorded Sex Assigned at Not on file Legal Sex Female 10:52 AM CDT Gender Identity Not on file Sexual Orientation Not on file Obstetrics History Last Filed Vital Signs Vital Sign Reading Time Taken Comments Blood Pressure 120/68 02/11/2025 12:51 PM CDT Pulse 62 02/11/2025 12:51 PM CDT Temperature 36.4 C (97.6 F) 12/23/2024 1:15 PM HEALTH SAFETY COORDINATOR Respiratory Rate 18 02/11/2025 12:51 PM CDT Oxygen Saturation 97% 02/11/2025 12:51 PM CDT Inhaled Oxygen Concentration - - Weight 51.9 kg (114 lb 6.4 oz) 02/11/2025 12:51 PM CDT Height 167.6 cm (5' 6 ) 02/11/2025 12:51 PM CDT Body Mass Index 18.46 02/11/2025 12:51 PM CDT Plan of Treatment Health Maintenance Due Date Last Done Comments Cervical Cancer Screening 1968 Colon Cancer Screening-Colonoscopy 1968 Hepatitis C Screening 1968 Regular Well Visit/Exam 18-64 1986 Breast Cancer Screening-Mammogram 04/03/2022 021, 04/03/2021 Pneumococcal vaccine <65 (3 of 3 - PCV20 or PCV21) 01/14/2024 01/14/2019, 10/07/2018 Zoster Vaccine (1 of 2) 02/11/2024 Covid-19 Vaccine (4 - 2023-2 5 season) 2024 02/21/2022, 04/26/2021, 03/29/2021 Depression Screening 12/23/2025 12/23/2024 DTaP/Tdap/Td Vaccine (6 - Td or Tdap) 12/17/2033 12/17/2023, 09/22/1981, 11/17/1972, Additional history exists Hepatitis B Screening Completed 12/17/2023 Influenza Vaccine Completed 12/22/2024, , 09/12/2022, Additional history exists Medical Devices Implanted Type Area Job Coaching Device Identifier Shelf Expiration Date Model / Serial / Lot Medtronic Inc Visi-Pro 7mm 57mm 80cm Balloon Expand Radiopaque Mount 60mm Stent - [id number] Implanted:Qty: 1 on 07/21/2020 by Thomas Kathleen MD at [facility] Stent [employer] Inc 01/10/2023 [id number] 5-07 -57-080 / / [id number] Med[employer]onic Inc Visi-Pro 7mm 37mm 135cm Radiopaque Balloon Expand Radial Strength - [id number] Implanted:Qty: 1 on 07/21/2020 by Thomas Kathleen MD at [facility] Stent [employer] Inc 01/04/2023 [id number] 5-07 -37-135 / / [id number] [employer] [id number] Zilver Ptx 6mm 60mm 125cm Drug Elute Otw Delivery System - [id number] Implanted:Qty: 1 on 07/21/2020 by Thomas Kathleen MD at [facility] Stent [employer] 10/07/2021 [id number] / / [id number] [facility] [id number] Cordis Palmaz Blue 6mm 5fr 14mm 135cm Delivery System Otw Closed Latex Free - [id number] Implanted:Qty: 1 on 10/11/2020 by Thomas Kathleen MD at [facility] Stent [facility] Supply 08/17/2022 [id number] / / [id number] [facility] [id number] Cordis Palmaz Blue 6mm 5fr 10mm 135cm Delivery System Otw Closed Latex Free - [id number] Implanted:Qty: 1 on 10/11/2020 by Thomas Kathleen MD at [facility] Stent [facility] 04/17/2023 [id number] / / [id number] [employer] Damien [id number] Synergy 2.5mm 12mm 144cm Radiopaque 1 Access Port Inflation Lumen - [id number] Implanted:Qty: 1 on 10/11/2020 by Thomas Kathleen MD at [facility] Stent [employer] Damien 10/06/2021 [id number] / / [id number] [facility] [id number] Cordis Palmaz Ester 8mm 6/6.5/7fr 36mm 135cm Delivery System Latex Free - [id number] Implanted:Qty: 1 on 10/11/2020 by Thomas Kathleen MD at [facility] Stent [facility] 03/17/2021 [id number] / / [id number] [employer] Stent Graft Endoprosthesis Reduced Profile Straight Heparin Coated Viabahn [id number] - [id number] - [id number] Implanted:Qty: 1 on 12/09/2024 by Elis Louis MD PhD at [facility] N/A: Superior Mesenteric Artery [employer] [id number] 05/11/2027 [id number] / [id number] / Procedures Procedure Name Priority Date/Time Associated Diagnosis Comments SCAN - LABS 03/23/2025 SCAN - LABS 03/16/2025 SCAN - LABS 03/09/2025 SCAN - LABS 02/23/2025 PHOSPHORUS Routine 02/12/2025 On total parenteral nutrition (TPN) Severe malnutrition MAGNESIUM Routine 02/12/2025 On total parenteral nutrition (TPN) Severe malnutrition COMPREHENSIVE METABOLIC PANEL Routine 02/12/2025 On total parenteral nutrition (TPN) Severe malnutrition SCAN - LABS 02/04/2025 SCAN - LABS 01/26/2025 SCAN - LABS 01/19/2025 from Last 3 Months Results * SCAN - LABS (03/23/2025) us Aliyah A. Jennette DO Final Result * SCAN - LABS (03/16/2025) us Aliyah A. Jennette DO Final Result * SCAN - LABS (03/09/2025) us Aliyah A. Jennette DO Final Result * SCAN - LABS (02/23/2025) us Aliyah A. Jennette DO Final Result * Phosphorus (02/12/2025) Blood us Aliyah A. Jennette DO LAB BLOOD ORDERABLES Final Resul t Performing Organization Address City/[facility]/ZIP Co de Phone Number EXTERNAL LAB * Magnesium (02/12/2025) Blood us Aliyah A. Jennette DO LAB BLOOD ORDERABLES Final Resul t Performing Organization Address City/[facility]/ZIP Co de Phone Number EXTERNAL LAB * Comprehensive metabolic panel (02/12/2025) Blood us Aliyah A. Jennette DO LAB BLOOD ORDERABLES Final Resul t Performing Organization Address City/[facility]/ZIP Co de Phone Number EXTERNAL LAB * SCAN - LABS (02/04/2025) us Aliyah A. Jennette DO Edited Result - Final * SCAN - LABS (01/26/2025) us Aliyah A. Jennette DO Final Result * SCAN - LABS (01/19/2025) us Aliyah Daniels DO Final Result from Last 3 Months Insurance [employer] VIA [facility] [employer]ETNA BETTER [facility] Advance Directives For more information, please contact: [phone] * Full Code (Latest Code Status on File) Date Activated Date Inactivated Comments 12/04/2024 5:44 PM 12/22/2024 7:18 PM * Full Code Date Activated Date Inactivated Comments 10/11/2020 12:45 PM 10/12/2020 3:58 PM * Full Code Date Activated Date Inactivated Comments 07/21/2020 5:01 PM 07/22/2020 12:42 AM Care Teams Medical Officer Relationship Specialty Start Date End Date Aliyah Daniels DO [address] [facility] [address] [address] PCP - General Family Medicine 12/23/24 Elis Louis MD PhD [address] [phone] [place] [address] Consulting Physician Vascular Surgery 12/22/24
--- OUTSIDE RECORDS SUMMARY | 2025-03-30 17:06 | XMS_ITS | Encounter Summary ---
Author Organization [facility] Healthcare Address [address] [place] [address] Care Team Providers Care Medical Billing Manager Name Role Phone Elis Louis MD PhD Unavailable + Aliyah Daniels DO Primary Care Provider [phone] Encounter Details Date Type Department Care Team (Late st Contact Info) Description 01/19/2025 Orders Only [facility] Health Information Management [address] [place] [address] Aliyah Daniels DO [address] [place] [address] [address] Social History Tobacco Use Types Packs/Day [...] on file documented as of this encounter Procedures Procedure Name Priority Date/Time Associated Diagnosis Comments SCAN - LABS 01/19/2025 documented in this encounter Results * SCAN - LABS (01/19/2025) Aliyah Daniels DO Final Result documented in this encounter Visit Diagnoses Not on filedocumented in this encounter Care Teams Medical Billing Manager Relationship Specialty Start Date End Date Aliyah Daniels DO [address] [facility] [address] [place] [address] [place] [address] PCP - General Family Medicine 12/23/24 Elis Louis MD PhD [address] [phone] [place] [address] Consulting Physician Vascular Surgery 12/22/24 documented as of this encounter
--- OUTSIDE RECORDS SUMMARY | 2025-03-30 17:06 | XMS_ITS | Encounter Summary ---
Author Organization [facility] Address [address] [facility] [place] [address] Phone Care Team Providers Care Business Support Coordinator Name Role Phone Terry Anguiano Patricia MARC Unavailable [phone] Ronnie Jamil MD Unavailable [phone] James Pierce APRN, DENTAL EQUIPMENT MECHANIC Primary Care Pr ovider Reason for Visit * Reason Comments Medication Refill Encounter Details Date Type Department Care Team (Late st Contact Info) Description 05/23/2020 Refill [facility] Medical Group - Family Medicine 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 No / Unsure 05/02/2020 3:49 PM CDT documented as of this encounter Miscellaneous Notes * Telephone Encounter - Negra Lucio RN - 05/24/2020 3:33 PM CDT Requested Prescriptions Pending Prescriptions Disp Refills oxyCODONE-Acetaminophen (PERCOCET) 10-325 MG Tablet [Pharmacy Med Name: OXYCODONE/ACETAMINOPHEN 10-325MG TABLET] 120 Tab 0 Sig: Take 1 Tab by mouth every 6 hours as needed for Moderate or more severe pain. Not Delegated - Analgesics: Opioid Agonist Combinations Failed - 05/23/2020 11:25 AM Failed - This refill cannot be delegated Passed - Valid encounter within last 6 months Past Office Visits Recent Outpatient Visits 3 weeks ago Renal artery stenosis (HCC) [facility] James Pierce APN, CNP 2 months ago Lower extremity pain, right [facility] James Pierce APN, CNP 3 months ago Encounter for general adult medical examination with abnormal findings [facility] James Pierce APN, CNP 5 months ago Major depressive disorder, recurrent episode, moderate with anxious distress (HCC) [facility] James Pierce APN, CNP 8 months ago Essential hypertension [facility] James Pierce APN, CNP Upcoming Appointments Future Appointments In 2 months James Pierce APN, CNP [facility]YSICIAN [facility], [facility] pregabalin (LYRICA) 100 MG Capsule [Pharmacy Med Name: PREGABALIN 100MG CAPSULE] 90 Cap 0 Sig: Take 1 Cap by mouth 3 times daily. Not Delegated - Neurology: Anticonvulsants - Controlled Substances Failed - 05/23/2020 11:25 AM Failed - This refill cannot be delegated Passed - Valid encounter within last 12 months Past Office Visits Recent Outpatient Visits 3 weeks ago Renal artery stenosis (HCC) [facility] James Pierce APN, CNP 2 months ago Lower extremity pain, right [facility] James Pierce APN, CNP 3 months ago Encounter for general adult medical examination with abnormal findings [facility] James Pierce APN, CNP 5 months ago Major depressive disorder, recurrent episode, moderate with anxious distress (HCC) [facility] James Pierce APN, CNP 8 months ago Essential hypertension [facility] James Pierce APN, CNP Upcoming Appointments Future Appointments In 2 months James Pierce APN, CNP [facility], [facility] documented in this encounter Plan of Treatment Not on file documented as of this encounter Visit Diagnoses Diagnosis Chronic pain syndrome Fibromyalgia Mylagia and myositis, unspecified documented in this encounter Additional Health Concerns Assessment Noted Time PHQ-9 Depression Total Score: 13 019 4:36 PM CDT documented as of this encounter Care Teams Business Support Coordinator Relationship Specialty Start Date End Date James Pierce APRN, CNP [address] [address] PCP - General Certified Nurse Practitioner 10/07/18 02/10/23 Terry Anguiano DPM Podiatry 01/07/17 Ronnie Jamil MD Consulting Physician Neurology 03/22/17 10/04/24 documented as of this encounter
--- OUTSIDE RECORDS SUMMARY | 2025-03-30 17:06 | XMS_ITS | Encounter Summary ---
Author Organization [facility] Address [address] [facility] [place] [address] Phone Care Team Providers Care Carbon Plant Grinder Name Role Phone Annmarie Terry Gomez DPM Unavailable [phone] Ronnie Jamil MD Unavailable [phone] James Pierce APRN, INSTRUMENT AND CONTROL TECHNICIAN Primary Care Pr ovider Reason for Visit * Reason Onset Date Comments Medication Refill 01/24/2021 Encounter Details Date Type Department Care Team (Late st Contact Info) Description 01/24/2021 Refill [facility] Medical Group - Family Medicine [facility] [address] [place] [phone] James Pierce APRN, INSTRUMENT AND CONTROL TECHNICIAN #[address] [address] Medication Refill Social History Tobacco Use Types [...] on file Legal Sex Female 12:49 PM ENTERPRISE 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 RPRISE RESOURCE PLANNING CONSULTANT * Telephone Encounter - Yeny King RN - 01/24/2021 10:16 AM CST Sent to PCP RPRISE RESOURCE PLANNING CONSULTANT * Telephone Encounter - Yeny King RN - 01/24/2021 10:16 AM CST Medication failed the protocol, provider to review and approve the medication order if appropriate. Last OV 08/30/20, F/U None, last Rx 11/24/20 Yeny CASAS Requested Prescriptions Pending Prescriptions Disp Refills pregabalin (LYRICA) 100 MG Capsule 90 Capsule 1 Sig: Take 1 Capsule by mouth 3 times daily. Not Delegated - Neurology: Anticonvulsants - Controlled Substances Failed - 01/24/2021 10:15 AM Failed - This refill cannot be delegated Passed - Valid encounter within last 12 months Past Office Visits Recent Outpatient Visits 4 months ago Arteriosclerotic cardiovascular disease (ASCVD) [facility] James Pierson APN, INSTRUMENT AND CONTROL TECHNICIAN 8 months ago Renal artery stenosis (HCC) [facility] James Pierson APN, INSTRUMENT AND CONTROL TECHNICIAN 10 months ago Lower extremity pain, right [facility] James Pierson APN, INSTRUMENT AND CONTROL TECHNICIAN 12 months ago Encounter for general adult medical examination with abnormal findings [facility] James Pierson APN, INSTRUMENT AND CONTROL TECHNICIAN 1 year ago Major depressive disorder, recurrent episode, moderate with anxious distress (HCC) [facility] James Pierson APN, INSTRUMENT AND CONTROL TECHNICIAN Upcoming Appointments 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 Showing future appointments within next 90 days with a meds authorizing provider and meeting all other requirements RPRISE RESOURCE PLANNING CONSULTANT * Telephone Encounter - Kaylene Traore - 01/24/2021 9:54 AM CST Received a faxed Rx request from pharmacy. Reordered refill medication(s) requested and pended for nurse and physician/KATHARINE review. Refill encounter routed to nurse Carter's pool for processing. RPRISE RESOURCE PLANNING CONSULTANT documented in this encounter Plan of Treatment Not on file documented as of this encounter Visit Diagnoses Diagnosis Fibromyalgia Mylagia and myositis, unspecified documented in this encounter Additional Health Concerns Assessment Noted Time PHQ-9 Depression Total Score: 13 019 4:36 PM CDT documented as of this encounter Care Teams Carbon Plant Grinder Relationship Specialty Start Date End Date James Pierce APRN, CNP [address] [address] PCP - General Certified Nurse Practitioner 10/07/18 02/10/23 Terry Anguiano DPM Podiatry 01/07/17 Ronnie Jamil MD Consulting Physician Neurology 03/22/17 10/04/24 documented as of this encounter
--- OUTSIDE RECORDS SUMMARY | 2025-03-30 17:06 | XMS_ITS | Referral Summary ---
Author Organization [facility] Address [address] [place] [address] Care Team Providers Care Delivery And Mail Sorter Name Role Phone Elis Louis MD PhD Unavailable + Aliyah Daniels DO Primary Care Provider [phone] Encounters Date Type Department Care Team Description 03/23/2025 Orders Only [facility] [address] [place] [address] Aliyah Daniels, DO 03/17/2025 Documentation [facility] Home Care Services [address] [facility] [address] [place] [address] Dorina Downing, RD 03/16/2025 Orders Only [facility] [address] [place] [address] Aliyah Daniels, 03/09/2025 Orders Only [facility] [address] [place] [address] Aliyah Daniels DO 03/04/2025 Telephone [facility] [address] [facility] [address] [place] [phone] Aneta Mayer Appointment 02/23/2025 Orders Only [facility] [address] [place] [address] Aliyah Dainels, DO 02/15/[address] [place] [address] Aliyah Daniels, DO Med Refill 02/11/[address] [place] [address] Aliyah Daniels, DO Medical Question/Miscellaneo us 02/11/2025 12:45 PM CDT Office Visit [address] [place] [phone] Aliyah Daniels, DO Severe malnutrition (Primary Dx); On total parenteral nutrition (TPN); Chronic mesenteric ischemia; Neuropathy of both feet 02/10/2025 Documentation [facility] Home Care Services [address] [place] [phone] Dorina Downing, ROSSY 02/04/2025 Orders Only [facility] [address] [place] [address] Aliyah Daniels, DO 01/26/2025 Orders Only [facility] [address] [place] [address] Aliyah Daniels, DO 01/19/2025 Orders Only [facility] [address] [place] [address] Aliyah Daniels, DO 01/18/[address] [place] [address] Aliyah Daniels, DO Medical Question/Miscellaneo us 01/13/2025 Documentation [facility] Home Care Services [address] [place] [address] [place] [phone] Dorina Downing, RD 01/11/[address] [place] [address] Aliyah Daniels, DO Medical Question/Miscellaneo us 01/08/2025 Orders Only [facility] [address] [place] [address] Medical Office Building [address] [place] [address] Elis Louis MD PhD Chronic mesenteric ischemia (Primary Dx) from Last 3 Months Allergies Active Allergy Reactions Criticality Noted Date [...] mL into catheter every 8 (eight) hours Active TPN AT DISCHARGE Infuse into a [...] 12/18/2024 Assessment & Plan (12/22/2024 7:44 AM MARKET MAKER): 2/2 chronic mesenteric ischemia. -previously on oxy but has since been stopped and switched to tramadol. -YRN tylenol, lidocaine patches, methocarbamol, lyrica Housing instability 12/06/2024 Assessment & Plan (12/22/2024 7:44 AM MARKET MAKER): - Patient stated she would be evicted [...] 12/04/2024 Assessment & Plan (12/22/2024 7:44 AM MARKET MAKER): Not able to eat due to abd pain. Recorded BMI 14.62. Prealbumin 21. Meets criteria for severe malnutrition - Consulted nutrition team - PICC line placed, TPN daily - S/P High dose IV thiamine. MVI per TPN. - cont diet Occlusion of subclavian artery 10/10/2020 Overview (10/10/2020): Added automatically from request for surgery [id number] Chronic mesenteric ischemia 09/26/2020 Assessment & Plan (12/22/2024 7:43 AM MARKET MAKER): Most recently underwent repeat intervention in September 2020 which included stenting of both the celiac and superior mesenteric arteries as well as recanalization and stenting of the left subclavian artery. Presented to [facility] on 12/03 with worsening abdominal pain over [...] patent stents. Coronary artery disease invo lving chilkat coronary artery of chilkat heart without angina pectoris 07/19/2020 Overview (07/19/2020): Added automatically from request for surgery [id number] Assessment & Plan (12/22/2024 7:44 AM MARKET MAKER): Heart cath on 10/11/20 that showed lesion [...] (07/19/2020): Added automatically from request for surgery [id number] Assessment & Plan (12/22/2024 7:44 AM MARKET MAKER): Follows with Dr Kathleen (Cardiology [facility] of [facility]). Reports chronic bilateral LE claudication R>L. S/p [...] (10/10/2020): Added automatically from request for surgery [id number] Immunizations Immunization Administration Dates Next Due DTaP, Unspecified 11/17/1972, 1,11/17/1969,11/17 Hep A, Adult 12/17/2023 Hep B Vaccine 12/17/2023 Influenza, Quadrivalent, Spl it, Preservative Free, Intramuscular 12/17/2023,09/12/2022,02/21/2022 Influenza, Trivalent, Preser vative Free, Intramuscular 12/22/2024 MMR 12/17/2023 Mumps 11/17/1973 Pneumococcal Conjugate PCV 13 10/07/2018 Pneumococcal Polysaccharide PPV23 01/14/2019 Td, Unspecified 09/22/1981 Tdap 12/17/2023 Varicella 12/17/2023 Social History Tobacco Use Types Packs/Day Years [...] 36.4 C (97.6 F) 12/23/2024 1:15 PM MARKET MAKER Respiratory Rate 18 02/11/2025 12:51 PM CDT Oxygen Saturation 97% 02/11/2025 12:51 PM CDT Inhaled Oxygen Concentration - - Weight 51.9 kg (114 lb 6.4 oz) 02/11/2025 12:51 PM CDT Height 167.6 cm (5' 6 ) 02/11/2025 12:51 PM CDT Body Mass Index 18.46 02/11/2025 12:51 PM CDT Plan of Treatment Not on file Medical Devices Implanted Type Area Manufacturing Specialist Device Identifier Shelf Expiration Date Model / Serial / Lot Medtronic Inc Visi-Pro 7mm 57mm 80cm Balloon Expand Radiopaque Mount 60mm Stent - [id number] Implanted:Qty: 1 on 07/21/2020 by Thomas Kathleen MD at [facility] Stent Med[employer] Inc 01/10/2023 [id number] 5-07 -57-080 / / [id number] Medtronic Inc Visi-Pro 7mm 37mm 135cm Radiopaque Balloon Expand Radial Strength - [id number] Implanted:Qty: 1 on 07/21/2020 by Thomas Kathleen MD at [facility] Stent Med[employer]onic Inc 01/04/2023 [id number] 5-07 -37-135 / / [id number] Pharm[employer] [id number] Zilver Ptx 6mm 60mm 125cm Drug Elute Otw Delivery System - [id number] Implanted:Qty: 1 on 07/21/2020 by Thomas Kathleen MD at [facility] Stent [employer] Inc 10/07/2021 [id number] / / [id number] [facility] [id number] Cordis Palmaz Blue 6mm 5fr 14mm 135cm Delivery System Otw Closed Latex Free - [id number] Implanted:Qty: 1 on 10/11/2020 by Thomas Kathleen MD at [facility] Stent [facility] Hosp Supply 08/17/2022 [id number] / / [id number] [facility] [id number] Cordis Palmaz Blue 6mm 5fr 10mm 135cm Delivery System Otw Closed Latex Free - [id number] Implanted:Qty: 1 on 10/11/2020 by Thomas Kathleen MD at [facility] Stent [facility] Supply 04/17/2023 [id number] / / [id number] [employer] Damien [id number] Synergy 2.5mm 12mm 144cm Radiopaque 1 Access Port Inflation Lumen - [id number] Implanted:Qty: 1 on 10/11/2020 by Thomas Kathleen MD at [facility] Stent [employer]ien 10/06/2021 [id number] / / [id number] [facility] Supply [id number] Cordis Palmaz Ester 8mm 6/6.5/7fr 36mm 135cm Delivery System Latex Free - [id number] Implanted:Qty: 1 on 10/11/2020 by Thomas Kathleen MD at [facility] Stent [facility] Hosp Supply 03/17/2021 [id number] X / / [id number] [employer] Stent Graft Endoprosthesis Reduced Profile Straight Heparin Coated Viabahn [id number] - [id number] - [id number] Implanted:Qty: 1 on 12/09/2024 by Elis Louis MD PhD at [facility] N/A: Superior Mesenteric Artery [employer] [id number] 05/11/2027 [id number] / [id number] / Procedures Procedure Name Priority Date/Time Associated [...] Months Results * SCAN - LABS (03/23/2025) Electronic Payment and Services (EPS) Aliyah A. [place] DO Final Result * SCAN - LABS (03/16/2025) Food Runnerya A. [place] DO Final Result * SCAN - LABS (03/09/2025) Food Runnerya A. [place] DO Final Result * SCAN - LABS (02/23/2025) Food Runnerya A. [place] DO Final Result * Phosphorus (02/12/2025) Blood Electronic Payment and Services (EPS) Aliyah A. [place] DO LAB BLOOD ORDERABLES Final Resul t Performing Organization Address [place] Co de Phone Number EXTERNAL LAB * Magnesium (02/12/2025) Blood us Aliyah A. [place] DO LAB BLOOD ORDERABLES Final Resul t EXTERNAL LAB * Comprehensive metabolic panel (02/12/2025) Blood us Aliyah A. [place] DO LAB BLOOD ORDERABLES Final Resul t Performing Organization Address [place]/[facility]/ZIP Co de Phone Number EXTERNAL LAB * SCAN - LABS (02/04/2025) us Aliyah Segal [place] DO Edited Result - Final * SCAN - LABS (01/26/2025) us Aliyah Segal [place] DO Final Result * SCAN - LABS (01/19/2025) us Aliyah Segal [place] DO Final Result from Last 3 Months Insurance [facility] AETNA BETTER [facility] Advance Directives For more information, please contact: [phone] * Full Code (Latest Code Status on File) Date Activated Date Inactivated Comments 12/04/2024 5:44 PM 12/22/2024 7:18 PM * Full Code Date Activated Date Inactivated Comments 10/11/2020 12:45 PM 10/12/2020 3:58 PM * Full Code Date Activated Date Inactivated Comments 07/21/2020 5:01 PM 07/22/2020 12:42 AM Care Teams Delivery And Mail Sorter Relationship Specialty Start Date End Date Aliyah Daniels DO [address] [place] [address] PCP - General Family Medicine 12/23/24 Elis Louis MD PhD [address] [phone] [place] [address] Consulting Physician Vascular Surgery 12/22/24
--- OUTSIDE RECORDS SUMMARY | 2025-03-30 17:06 | XMS_ITS | Encounter Summary ---
Author Organization [facility] Address [address] [facility] [address] Phone Care Team Providers Care Bow Repairer Custom Name Role Phone AnnmarieTerry DPM Unavailable [phone] Ronnie Jamil MD Unavailable [phone] James Pierce APRN, POOL MANAGER Primary Care Pr ovider Reason for Visit * Reason Onset Date Comments Medication Refill 08/02/2020 oxycodone Encounter Details Date Type Department Care Team (Late st Contact Info) Description 08/02/2020 Refill [facility] Medical Group - Family Medicine [facility] [address] [place] [address] James Pierce, YG, POOL MANAGER [address] [address] Medication Refill (oxycodone) Social History Tobacco Use Types Packs/Day Years [...] on file Legal Sex Female 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 No / Unsure 08/01/2020 1:05 PM CDT documented as of this encounter Miscellaneous Notes * Telephone Encounter - Natacha Jones RN - 08/03/2020 9:49 AM CDT YOLA: 05-02-2020 Next OV: 08-15-2020 * Telephone Encounter - Natacha Najera - 08/02/2020 12:19 PM CDT Name of Medication: oxyCODONE-Acetaminophen (PERCOCET) 10-325 MG Tablet Pharmacy/location for refill to be sent to (if is not a written script) [facility] 30 or 90 day supply? 30 . documented in this encounter Plan of Treatment Not on file documented as of this encounter Visit Diagnoses Diagnosis Chronic pain syndrome documented in this encounter Additional Health Concerns Assessment Noted Time PHQ-9 Depression Total Score: 13 019 4:36 PM CDT documented as of this encounter Care Teams Bow Repairer Custom Relationship Specialty Start Date End Date James Pierce, CITRUS PEELER, POOL MANAGER #[address] [address] PCP - General Certified Nurse Practitioner 10/07/18 02/10/23 Terry Anguiano DPM Podiatry 01/07/17 Ronnie Jamil MD Consulting Physician Neurology 03/22/17 10/04/24 documented as of this encounter
--- OUTSIDE RECORDS SUMMARY | 2025-03-30 17:06 | XMS_ITS | Encounter Summary ---
Author Organization [facility] Address [address] [facility] [place] [address] Phone Care Team Providers Care Loom Blower Name Role Phone Annmarie Terry Gomez DPM Unavailable [phone] Ronnie Jamil MD Unavailable [phone] James Pierce APRN, TALENT SOURCER Primary Care Pr ovider Reason for Visit * Reason Onset Date Comments Medication Refill 08/29/2021 Encounter Details Date Type Department Care Team (Late st Contact Info) Description 08/29/2021 Refill [facility] Medical Group - Family Medicine [facility] [address] [place] [phone] James Pierce, YG, TALENT SOURCER [address] [address] Medication Refill Social History Tobacco Use Types [...] on file Legal Sex Female 12:49 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 - Oral Sent to pharmacy as: Cyclobenzaprine HCl 10 MG Oral Tablet (FLEXERIL) Class: E Prescribe E-Prescribing Status: Receipt confirmed by pharmacy (07/25/2021 ??3:39 PM CDT) Order Questions ?? cyclobenzaprine (FLEXERIL) 10 MG Tablet [[id number]] 38 Status: Active Ordering user: Alicia Guaman APN, CNP 07/25/211538 Authorized by: Alicia Guaman APN, CNP PRN reasons: Muscle spasms Frequency: TID PRN 07/25/21 - Until Discontinued Released by: Alicia Guaman APN, CNP 539 Diagnoses Chronic bilateral low back pain without sciatica [M54.5, G89.29] Associated Diagnoses Chronic bilateral low back pain without sciatica Pharmacy [id number] * Telephone Encounter - Diane Ruiz - 08/29/2021 10:12 AM CDT Received a faxed Rx request from pharmacy. Reordered refill medication(s) requested and pended for nurse and physician/KATHARINE review. Refill encounter routed to nurse Carter's pool for processing. documented in this encounter Plan of Treatment Not on file documented as of this encounter Visit Diagnoses Diagnosis Chronic bilateral low back pain without sciatica documented in this encounter Additional Health Concerns Assessment Noted Time PHQ-9 Depression Total Score: 1 03/23/20 21 3:00 PM CDT documented as of this encounter Care Teams Loom Blower Relationship Specialty Start Date End Date James Pierce APRN, JOSE A #[address] [address] PCP - General Certified Nurse Practitioner 10/07/18 02/10/23 Terry Anguiano DPM Podiatry 01/07/17 Ronnie Jamil MD Consulting Physician Neurology 03/22/17 10/04/24 documented as of this encounter
[2025-03-30 17:23] VITALS: BP 128/74; PULSE 96; RESP 20; TEMP 36.6; O2SAT 96
--- OUTSIDE RECORDS SUMMARY | 2025-03-30 20:23 | XMS_ITS | Encounter Summary ---
Author Organization [facility] Healthcare Address [address] [place] [address] Care Team Providers Care Bowling Alley Attendant Name Role Phone Elis Louis MD PhD Unavailable + Aliyah Daniels DO Primary Care Provider [phone] Encounter Details Date Type Department Care Team (Late st Contact Info) Description 01/19/2025 Orders Only [facility] Health Information Management [address] [place] [address] Aliyah Daniels DO [address] [place] [address] [address] Social History Tobacco Use Types [...] on filedocumented in this encounter Care Teams Bowling Alley Attendant Relationship Specialty Start Date End Date Aliyah Daniels DO [address] [place] [address] [place] [address] PCP - General Family Medicine 12/23/24 Elis Louis MD PhD [phone] [place] [address] Consulting Physician Vascular Surgery 12/22/24 documented as of this encounter
--- OUTSIDE RECORDS SUMMARY | 2025-03-30 20:23 | XMS_ITS | Encounter Summary ---
Author Organization [facility] Address [address] [facility] [place] [address] Phone Care Team Providers Care Flocculator Operator Name Role Phone Annmarie Terry Gomez DPM Unavailable [phone] Ronnie Jamil MD Unavailable [phone] James Pierce APRN, DIAMOND SIZER AND GRADER Primary Care Pr ovider Reason for Visit * Reason Onset Date Comments Medication Refill 01/24/2021 Encounter Details Date Type Department Care Team (Late st Contact Info) Description 01/24/2021 Refill [facility] Medical Group - Family Medicine [facility] [address] [place] [id number] James Pierce APRN, DIAMOND SIZER AND GRADER [address] [address] Medication Refill Social History Tobacco Use Types [...] on file Legal Sex 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 ING MACHINE COLLECTOR * Telephone Encounter - Yeny King RN - 01/24/2021 10:16 AM CST Sent to PCP ING MACHINE COLLECTOR * Telephone Encounter - Yeny King RN [...] 4 months ago Arteriosclerotic cardiovascular disease (ASCVD) [facility] [place] APN, DIAMOND SIZER AND GRADER 8 months ago Renal artery stenosis (HCC) [facility] [place] APN, DIAMOND SIZER AND GRADER 10 months ago Lower extremity pain, right [facility] [place] APN, DIAMOND SIZER AND GRADER 12 months ago Encounter for general adult medical examination with abnormal findings [facility] [place] APN, DIAMOND SIZER AND GRADER 1 year ago Major depressive disorder, recurrent episode, moderate with anxious distress (HCC) [facility] James [place] APN, DIAMOND SIZER AND GRADER Upcoming Appointments 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 Showing recent visits within past 460 days with a meds authorizing provider and meeting all other requirements Future Appointments No visits were found meeting these conditions. Showing future appointments within next 90 days with a meds authorizing provider and meeting all other requirements ING MACHINE COLLECTOR * Telephone Encounter - Kyalene Traore - 01/24/2021 9:54 AM CST Received a faxed Rx request from pharmacy. Reordered refill medication(s) requested and pended for nurse and physician/KATHARINE review. Refill encounter routed to nurse Carter's pool for processing. ING MACHINE COLLECTOR documented in this encounter Plan of Treatment Not on file documented as of this encounter Visit Diagnoses Diagnosis Fibromyalgia Mylagia and myositis, unspecified documented in this encounter Additional Health Concerns Assessment Noted Time PHQ-9 Depression Total Score: 13 019 4:36 PM CDT documented as of this encounter Care Teams Flocculator Operator Relationship Specialty Start Date End Date James Pierce APRN, CNP [address] [address] PCP - General Certified Nurse Practitioner 10/07/18 02/10/23 Terry Anguiano DPM Podiatry 01/07/17 Ronnie Jamil MD Consulting Physician Neurology 03/22/17 10/04/24 documented as of this encounter
--- OUTSIDE RECORDS SUMMARY | 2025-03-30 20:23 | XMS_ITS | Encounter Summary ---
Author Organization [facility] Address [address] [facility] [place] [address] Phone Care Team Providers Care Supervisor Forming Department Name Role Phone Terry Anguiano Patricia MARC Unavailable [phone] Ronnie Jamil MD Unavailable [phone] James Pierce APRN, TEACHER CITIZENSHIP Primary Care Pr ovider Reason for Visit * Reason Comments Medication Refill Encounter Details Date Type Department Care Team (Late st Contact Info) Description 08/24/2021 Refill [facility] Medical Group - Family Medicine [facility] [address] [place] [id number] James Pierce, YG, TEACHER CITIZENSHIP [address] [address] Medication Refill Social History Tobacco Use Types [...] on file Legal 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
--- OUTSIDE RECORDS SUMMARY | 2025-03-30 20:23 | XMS_ITS | Encounter Summary ---
Author Organization [facility] Address [address] [facility] [place] [address] Phone Care Team Providers Care Knot Tying Operator Name Role Phone Terry Anguiano Patricia MARC Unavailable [phone] Ronnie Jamil MD Unavailable [phone] James Pierce APRN, SIGN SHOP SUPERVISOR Primary Care Pr ovider Reason for Visit * Reason Comments Medication Refill Encounter Details Date Type Department Care Team (Late st Contact Info) Description 05/23/2020 Refill [facility] Medical Group - Family Medicine [facility] [address] [place] [address] James Pierce, YG, SIGN SHOP SUPERVISOR [address] [address] Medication Refill Social History Tobacco Use Types [...] on file 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 Gender Identity Not on file Sexual Orientation Not on file 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 file Not on file Not [...] 3 weeks ago Renal artery stenosis (HCC) [facility] James Pierce APN, CNP 2 months ago Lower extremity pain, right [facility] James Pierce APN, CNP 3 months ago Encounter for general adult medical examination with abnormal findings [facility] James Pierce APN, CNP 5 months ago Major depressive disorder, recurrent episode, moderate with anxious distress (HCC) [facility] James Pierce APN, CNP 8 months ago Essential hypertension [facility] James Pierce APN, CNP Upcoming Appointments Future Appointments In 2 months James Pierce APN, CNP [facility] PHYSICIAN [facility] pregabalin (LYRICA) 100 MG Capsule [Pharmacy Med [...] 3 weeks ago Renal artery stenosis (HCC) [facility] James Pierce APN, CNP 2 months ago Lower extremity pain, right [facility] James Pierce APN, CNP 3 months ago Encounter for general adult medical examination with abnormal findings [facility] James Pierce APN, CNP 5 months ago Major depressive disorder, recurrent episode, moderate with anxious distress (HCC) [facility] James Pierce APN, CNP 8 months ago Essential hypertension [facility] James Pierce APN, CNP Upcoming Appointments Future Appointments In 2 months James Pierce APN, CNP [facility] documented in this encounter Plan of Treatment Not on file documented as of this encounter Visit Diagnoses Diagnosis Chronic pain syndrome Fibromyalgia Mylagia and myositis, unspecified documented in this encounter Additional Health Concerns Assessment Noted Time PHQ-9 Depression Total Score: 13 019 4:36 PM CDT documented as of this encounter Care Teams Knot Tying Operator Relationship Specialty Start Date End Date James Pierce APRN, CNP [address] [address] PCP - General Certified Nurse Practitioner 10/07/18 02/10/23 Terry Anguiano DPM Podiatry 01/07/17 Ronnie Jamil MD Consulting Physician Neurology 03/22/17 10/04/24 documented as of this encounter
--- OUTSIDE RECORDS SUMMARY | 2025-03-30 20:23 | XMS_ITS | Clinical Summary ---
Author Organization [facility] al Address [address] [place] [address] Care Team Providers Care Oil Well Fishing Tool Operator Name Role Phone Elis Louis MD PhD Unavailable + Aliyah Daniels DO Primary Care Provider [phone] Allergies Active Allergy Reactions Criticality Noted Date [...] 12/18/2024 Assessment & Plan (12/22/2024 7:44 AM 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 LABORER): 2/2 chronic mesenteric ischemia. -previously on oxy but has since been stopped and switched to tramadol. -YRN tylenol, lidocaine patches, methocarbamol, lyrica Housing instability 12/06/2024 Assessment & Plan (12/22/2024 7:44 AM 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 LABORER): - Patient stated she would be evicted [...] 12/04/2024 Assessment & Plan (12/22/2024 7:44 AM 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 LABORER): Not able to eat due to abd pain. Recorded BMI 14.62. Prealbumin 21. Meets criteria for severe malnutrition - Consulted nutrition team - PICC line placed, TPN daily - S/P High dose IV thiamine. MVI per TPN. - cont diet Occlusion of subclavian artery 10/10/2020 Overview (10/10/2020): Added automatically from request for surgery [id number] Chronic mesenteric ischemia 09/26/2020 Assessment & Plan (12/22/2024 7:43 AM 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 LABORER): Most recently underwent repeat intervention in September 2020 which included stenting of both the celiac and superior mesenteric arteries as well as recanalization and stenting of the left subclavian artery. Presented to [facility] on 12/03 with worsening abdominal pain [...] patent stents. Coronary artery disease invo lving cap[place] grande band coronary artery of cap[place] grande band heart without angina pectoris 07/19/2020 Overview (07/19/2020): Added automatically from request for surgery [id number] Assessment & Plan (12/22/2024 7:44 AM 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 LABORER): Heart cath on 10/11/20 that showed lesion [...] (07/19/2020): Added automatically from request for surgery [id number] Assessment & Plan (12/22/2024 7:44 AM 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 LABORER): Follows with Dr Kathleen (Cardiology Consults of [facility]). Reports chronic bilateral LE claudication R>L. [...] (10/10/2020): Added automatically from request for surgery [id number] Encounters Date Type Department Care Team Description 03/23/2025 Orders Only [facility] Health Information Management [address] [place] [address] Aliyah Daniels DO 03/17/2025 Documentation [facility] Home Care Services [address] [place] [address] [address] [place] [phone] Dorina Downing, RD 03/16/2025 Orders Only [facility] Health Information Management [address] [place] [address] Aliyah Daniels, DO 03/09/2025 Orders Only [facility] Health Information Management [address] [place] [address] Aliyah Daniels, DO 03/04/2025 Telephone [facility] [address] [facility] Floor 1 [place] [address] Aneta Mayer Appointment 02/23/2025 Orders Only [facility] Health Information Management [address] [place] [address] Aliyah Daniels, DO 02/15/[address] [place] [phone] Aliyah Daniels, Med Refill 02/11/2025 12:45 PM CDT Office Visit [address] [place] [phone] Aliyah Daniels, Severe malnutrition (Primary Dx); On total parenteral nutrition (TPN); Chronic mesenteric ischemia; Neuropathy of both feet 02/11/[address] [place] [phone] Aliyah Daniels, Medical Question/Miscellaneo us 02/10/2025 Documentation [facility] Home Care Services [address] [facility] [address] [place] [address] Dorina Downing, RD 02/04/2025 Orders Only [facility] Health Information Management [address] [place] [address] Aliyah Daniels, 01/26/2025 Orders Only [facility] Health Information Management [address] [place] [address] Aliyah Daniels, DO 01/19/2025 Orders Only [facility] Health Information Management [address] [place] [address] Aliyah Daniels, DO 01/18/2025 Telephone [facility] [address] [facility] [address] [place] [address] Aliyah Daniels, DO Medical Question/Miscellaneo us 01/13/2025 Documentation [facility] Home Care Services [address] [place] [address] [address] [place] [address] Dorina Downing, ROSSY 01/11/2025 Telephone [facility] Medicine [address] [facility] [address] [place] [address] Aliyah Daniels, DO Medical Question/Miscellaneo us 01/08/2025 Orders Only [facility] [address] [facility] Medical Office Building [address] [place] [address] Elis Louis MD PhD Chronic mesenteric ischemia [...] Relation Name Comments Heart attack Father Julius Bessemer Arthritis Mother Shalonda Maritza COPD Mother Shalonda [...] 36.4 C (97.6 F) 12/23/2024 1:15 PM 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 LABORER Respiratory Rate 18 02/11/2025 12:51 PM CDT [...] history exists Medical Devices Implanted Type Area Weather Reporter Device Identifier Shelf Expiration Date Model / Serial / Lot Med[employer]onic Inc Visi-Pro 7mm 57mm 80cm Balloon Expand Radiopaque Mount 60mm Stent - [id number] Implanted:Qty: 1 on 07/21/2020 by Thomas Kathleen MD at [facility] Stent [employer] Inc 01/10/2023 [id number] 5-07 -57-080 / / [id number] Med[employer]onic Inc Visi-Pro 7mm 37mm 135cm Radiopaque Balloon Expand Radial Strength - [id number] Implanted:Qty: 1 on 07/21/2020 by Thomas Kathleen MD at [facility] Stent [employer] Inc 01/04/2023 [id number] 5-07 -37-135 / / [id number] [employer] [id number] Zilver Ptx 6mm 60mm 125cm Drug Elute Otw Delivery System - [id number] Implanted:Qty: 1 on 07/21/2020 by Thomas Kathleen MD at [facility] Stent [employer] 10/07/2021 [id number] / / [id number] [facility] [id number] Cordis Palmaz Blue 6mm 5fr 14mm 135cm Delivery System Otw Closed Latex Free - [id number] Implanted:Qty: 1 on 10/11/2020 by Thomas Kathleen MD at [facility] Stent [facility] 08/17/2022 [id number] / / [id number] [facility] [id number] Cordis Palmaz Blue 6mm 5fr 10mm 135cm Delivery System Otw Closed Latex Free - [id number] Implanted:Qty: 1 on 10/11/2020 by Thomas Kathleen MD at [facility] Stent [facility] [employer] 04/17/2023 [id number] / / [id number] [employer] Damien [id number] Synergy 2.5mm 12mm 144cm Radiopaque 1 Access Port Inflation Lumen - [id number] Implanted:Qty: 1 on 10/11/2020 by Thomas Kathleen MD at [facility] Stent [employer]ien 10/06/2021 [id number] / / [id number] [facility] [employer] [id number] Cordis Palmaz Ester 8mm 6/6.5/7fr 36mm 135cm Delivery System Latex Free - [id number] Implanted:Qty: 1 on 10/11/2020 by Thomas Kathleen MD at [facility] Stent [facility] 03/17/2021 [id number] / / [id number] [employer] Stent Graft Endoprosthesis Reduced Profile Straight Heparin Coated Viabahn [id number] - [id number] - [id number] Implanted:Qty: 1 on 12/09/2024 by Elis Louis MD PhD at [facility] N/A: Superior Mesenteric Artery [employer] [id number] 05/11/2027 [id number] / [id number] / Procedures Procedure Name Priority Date/Time Associated [...] SCAN - LABS (03/23/2025) us Aliyah A. [place] DO Final Result * SCAN - LABS (03/16/2025) us Aliyah A. [place] DO Final Result * SCAN - LABS (03/09/2025) us Aliyah A. [place] DO Final Result * SCAN - LABS (02/23/2025) us Aliyah A. [place] DO Final Result * Phosphorus (02/12/2025) Blood us Aliyah A. [place] DO LAB BLOOD ORDERABLES Final Resul t Performing Organization Address City/[facility]/ZIP Co de Phone Number EXTERNAL LAB * Magnesium (02/12/2025) Blood us Aliyah A. [place] DO LAB BLOOD ORDERABLES Final Resul t Performing Organization Address City/[facility]/ZIP Co de Phone Number EXTERNAL LAB * Comprehensive metabolic panel (02/12/2025) Blood us Aliyah A. [place] DO LAB BLOOD ORDERABLES Final Resul t Performing Organization Address City/[facility]/ZIP Co de Phone Number EXTERNAL LAB * SCAN - LABS (02/04/2025) us Aliyah A. [place] DO Edited Result - Final * SCAN - LABS (01/26/2025) us Aliyah A. [place] DO Final Result * SCAN - LABS (01/19/2025) us Aliyah Daniels DO Final Result from Last 3 Months Insurance [employer] [facility] [employer] [facility] Advance Directives For more information, please contact: [phone] * Full Code (Latest Code Status on File) Date Activated Date Inactivated Comments 12/04/2024 5:44 PM 12/22/2024 7:18 PM * Full Code Date Activated Date Inactivated Comments 10/11/2020 12:45 PM 10/12/2020 3:58 PM * Full Code Date Activated Date Inactivated Comments 07/21/2020 5:01 PM 07/22/2020 12:42 AM Care Teams Oil Well Fishing Tool Operator Relationship Specialty Start Date End Date Aliyah Daniels DO [address] [facility] [address] [address] PCP - General Family Medicine 12/23/24 Elis Louis MD PhD [phone] [place] [address] Consulting Physician Vascular Surgery 12/22/24
--- OUTSIDE RECORDS SUMMARY | 2025-03-30 20:23 | XMS_ITS | Referral Summary ---
Author Organization [facility] Address [address] [place] [address] Care Team Providers Care Cath Lab Manager Name Role Phone Elis Louis MD PhD Unavailable + Aliyah Daniels DO Primary Care Provider [phone] Encounters Date Type Department Care Team Description 03/23/2025 Orders Only [facility] [address] [place] [address] Aliyah Daniels, DO 03/17/2025 Documentation [facility] Home Care Services [address] [facility] [address] [place] [address] Dorina Downing, RD 03/16/2025 Orders Only [facility] [address] [place] [address] Aliyah Daniels, 03/09/2025 Orders Only [facility] [address] [place] [address] Aliyah Daniels DO 03/04/[address] [facility] [address] [facility] [address] [place] [phone] Aneta Mayer Appointment 02/23/2025 Orders Only [facility] [address] [place] [address] Aliyah Daniels, DO 02/15/[address] [place] [address] Aliyah Daniels, DO Med Refill 02/11/[address] [place] [address] Aliyah Daniels, DO Medical Question/Miscellaneo us 02/11/2025 12:45 PM CDT Office Visit [address] [place] [phone] Aliyah Daniels, DO Severe malnutrition (Primary Dx); On total parenteral nutrition (TPN); Chronic mesenteric ischemia; Neuropathy of both feet 02/10/2025 Documentation [facility] Home Care Services [address] [place] [address] Dorina Downing, ROSSY 02/04/2025 Orders Only [facility] [address] [place] [address] Aliyah Daniels, DO 01/26/2025 Orders Only [facility] [address] [place] [address] Aliyah Daniels, DO 01/19/2025 Orders Only [facility] [address] [place] [address] Aliyah Daniels, DO 01/18/[address] [place] [address] Aliyah Daniels, DO Medical Question/Miscellaneo us 01/13/2025 Documentation [facility] Home Care Services [address] [place] [address] [place] [phone] Dorina Downing, RD 01/11/[address] [place] [address] Aliyah Daniels, DO Medical Question/Miscellaneo us 01/08/2025 Orders Only [facility] Vascular Surgery [address] [place] [address] Medical Office Building [address] [place] [address] Elis Louis MD PhD Chronic mesenteric ischemia [...] 12/18/2024 Assessment & Plan (12/22/2024 7:44 AM CURTAIN CUTTER HAND): 2/2 chronic mesenteric ischemia. -previously on oxy but has since been stopped and switched to tramadol. -YRN tylenol, lidocaine patches, methocarbamol, lyrica Housing instability 12/06/2024 Assessment & Plan (12/22/2024 7:44 AM CURTAIN CUTTER HAND): - Patient stated she would be evicted [...] 12/04/2024 Assessment & Plan (12/22/2024 7:44 AM CURTAIN CUTTER HAND): Not able to eat due to abd pain. Recorded BMI 14.62. Prealbumin 21. Meets criteria for severe malnutrition - Consulted nutrition team - PICC line placed, TPN daily - S/P High dose IV thiamine. MVI per TPN. - cont diet Occlusion of subclavian artery 10/10/2020 Overview (10/10/2020): Added automatically from request for surgery [id number] Chronic mesenteric ischemia 09/26/2020 Assessment & Plan (12/22/2024 7:43 AM CURTAIN CUTTER HAND): Most recently underwent repeat intervention in September 2020 which included stenting of both the celiac and superior mesenteric arteries as well as recanalization and stenting of the left subclavian artery. Presented to [facility] on 12/03 with worsening abdominal pain over [...] patent stents. Coronary artery disease invo lving cherokee coronary artery of cherokee heart without angina pectoris 07/19/2020 Overview (07/19/2020): Added automatically from request for surgery [id number] Assessment & Plan (12/22/2024 7:44 AM CURTAIN CUTTER HAND): Heart cath on 10/11/20 that showed lesion [...] (07/19/2020): Added automatically from request for surgery [id number] Assessment & Plan (12/22/2024 7:44 AM CURTAIN CUTTER HAND): Follows with Dr Kathleen (Cardiology [facility] of [facility]). Reports chronic bilateral LE claudication R>L. S/p [...] (10/10/2020): Added automatically from request for surgery [id number] Immunizations Immunization Administration Dates Next Due DTaP, [...] 36.4 C (97.6 F) 12/23/2024 1:15 PM CURTAIN CUTTER HAND Respiratory Rate 18 02/11/2025 12:51 PM CDT Oxygen Saturation 97% 02/11/2025 12:51 PM CDT Inhaled Oxygen Concentration - - Weight 51.9 kg (114 lb 6.4 oz) 02/11/2025 12:51 PM CDT Height 167.6 cm (5' 6 ) 02/11/2025 12:51 PM CDT Body Mass Index 18.46 02/11/2025 12:51 PM CDT Plan of Treatment Not on file Medical Devices Implanted Type Area Cot Assembler Device Identifier Shelf Expiration Date Model / Serial / Lot Medtronic Inc Visi-Pro 7mm 57mm 80cm Balloon Expand Radiopaque Mount 60mm Stent - [id number] Implanted:Qty: 1 on 07/21/2020 by Thomas Kathleen MD at [facility] Stent Med[employer]onic Inc 01/10/2023 [id number] 5-07 -57-080 / / [id number] Medtronic Inc Visi-Pro 7mm 37mm 135cm Radiopaque Balloon Expand Radial Strength - [id number] Implanted:Qty: 1 on 07/21/2020 by Thomas Kathleen MD at [facility] Stent Med[employer]onic Inc 01/04/2023 [id number] 5-07 -37-135 / / [id number] [employer] [id number] Zilver Ptx 6mm 60mm 125cm Drug Elute Otw Delivery System - [id number] Implanted:Qty: 1 on 07/21/2020 by Thomas Kathleen MD at [facility] Stent [employer] 10/07/2021 [id number] / / [id number] [facility] [id number] Cordis Palmaz Blue 6mm 5fr 14mm 135cm Delivery System Otw Closed Latex Free - [id number] Implanted:Qty: 1 on 10/11/2020 by Thomas Kathleen MD at [facility] Stent [facility] 08/17/2022 [id number] / / [id number] [facility] [id number] Cordis Palmaz Blue 6mm 5fr 10mm 135cm Delivery System Otw Closed Latex Free - [id number] Implanted:Qty: 1 on 10/11/2020 by Thomas Kathleen MD at [facility] Stent [facility] 04/17/2023 [id number] / / [id number] [employer] Damien [id number] Synergy 2.5mm 12mm 144cm Radiopaque 1 Access Port Inflation Lumen - [id number] Implanted:Qty: 1 on 10/11/2020 by Thomas Kathleen MD at [facility] Stent [employer] 10/06/2021 [id number] / / [id number] [facility] [id number] Cordis Palmaz Ester 8mm 6/6.5/7fr 36mm 135cm Delivery System Latex Free - [id number] Implanted:Qty: 1 on 10/11/2020 by Thomas Kathleen MD at [facility] Stent [facility] 03/17/2021 [id number] / / [id number] [employer] Stent Graft Endoprosthesis Reduced Profile Straight Heparin Coated Viabahn [id number] - [id number] - [id number] Implanted:Qty: 1 on 12/09/2024 by Elis Louis MD PhD at [facility] N/A: Superior Mesenteric Artery [employer] [id number] 05/11/2027 [id number] / [id number] / Procedures Procedure Name Priority Date/Time Associated [...] Months Results * SCAN - LABS (03/23/2025) [employer] Aliyah A. Bohemia DO Final Result * SCAN - LABS (03/16/2025) [employer] A. Bohemia DO Final Result * SCAN - LABS (03/09/2025) [employer] A. Bohemia DO Final Result * SCAN - LABS (02/23/2025) [employer] A. Bohemia DO Final Result * Phosphorus (02/12/2025) Blood [employer] Aliyah A. Bohemia DO LAB BLOOD ORDERABLES Final Resul t Performing Organization Address [facility] Co de Phone Number EXTERNAL LAB * Magnesium (02/12/2025) Blood us Aliyah A. Bohemia DO LAB BLOOD ORDERABLES Final Resul t EXTERNAL LAB * Comprehensive metabolic panel (02/12/2025) Blood us Aliyah A. Bohemia DO LAB BLOOD ORDERABLES Final Resul t Performing Organization Address City/[facility]/ZIP Co de Phone Number EXTERNAL LAB * SCAN - LABS (02/04/2025) us Aliyah Segal Bohemia DO Edited Result - Final * SCAN - LABS (01/26/2025) us Aliyah Segal Bohemia DO Final Result * SCAN - LABS (01/19/2025) us Aliyah Segal Bohemia DO Final Result from Last 3 Months Insurance [facility] [employer] BETTER [facility] Advance Directives For more information, please contact: [phone] * Full Code (Latest Code Status on File) Date Activated Date Inactivated Comments 12/04/2024 5:44 PM 12/22/2024 7:18 PM * Full Code Date Activated Date Inactivated Comments 10/11/2020 12:45 PM 10/12/2020 3:58 PM * Full Code Date Activated Date Inactivated Comments 07/21/2020 5:01 PM 07/22/2020 12:42 AM Care Teams Cath Lab Manager Relationship Specialty Start Date End Date Aliyah Daniels DO [address] [facility] [place] [address] PCP - General Family Medicine 12/23/24 Elis Louis MD PhD [address] [phone] [place] [address] Consulting Physician Vascular Surgery 12/22/24
--- OUTSIDE RECORDS SUMMARY | 2025-03-30 20:23 | XMS_ITS | Encounter Summary ---
Author Organization [facility] Healthcare Address [address] [place] [address] Care Team Providers Care Campus Rep Name Role Phone Unknown, Notinfile Primary Care Provider Unavail able James Pierce LUBRICATION EQUIPMENT SERVICER Primary Care Provider Unknown, Notinfile Primary Care Provider Unavail able Rebekah Khan LUBRICATION EQUIPMENT SERVICER Primary Care Provider [phone] Unknown, Notinfile Primary Care Provider Unavail able Elis Louis MD PhD Unavailable + Aliyah Daniels DO Primary Care Provider [phone] Encounter Details Date Type Department Care Team (Latest Contact Info) Description 06/06/2019 Ophth Exam Ophthalmology Keo Izquierdo MD [address] [facility] [place] [address] Social History Tobacco Use Types Packs/Day Years [...] Normal Normal Periphery Normal Normal Care Teams Campus Rep Relationship Specialty Start Date End Date Unknown, Notinfile PCP - General 06/06/19 05/18/20 James Pierce, MONTEZ [address] [address] PCP - General Nurse Practitioner 05/19/20 12/04/24 Unknown, Notinfile PCP - General 12/05/24 12/14/24 Rebekah Khan NP [address] [place] [address] PCP - General Orthopedic Surgery 12/15/24 12/17/24 Unknown, Notinfile PCP - General 12/18/24 12/22/24 Aliyah Daniels DO [address] [facility] [address] [place] [address] PCP - General Family Medicine 12/23/24 Elis Louis MD PhD [address] [phone] [place] [address] Consulting Physician Vascular Surgery 12/22/24 documented as of this encounter
--- OUTSIDE RECORDS SUMMARY | 2025-03-30 20:23 | XMS_ITS | Encounter Summary ---
Author Organization [facility] Address [address] [facility] [place] [address] Phone Care Team Providers Care Coding Clerk Name Role Phone Annmarie Terry Gomez DPM Unavailable [phone] Ronnie Jamil MD Unavailable [phone] James Pierce APRN, VESSEL OPERATOR Primary Care Pr ovider Reason for Visit * Reason Onset Date Comments Medication Refill 08/29/2021 Encounter Details Date Type Department Care Team (Late st Contact Info) Description 08/29/2021 Refill [facility] - Family Medicine [facility] [address] [place] [phone] James Pierce, YG, VESSEL OPERATOR [address] [address] Medication Refill Social History Tobacco Use Types [...] on file Legal Sex 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 cyclobenzaprine (FLEXERIL) 10 MG Tablet [[id number]] 38 Status: Active Ordering user: Alicia Guaman APN, CNP 07/25/211538 Authorized by: Alicia Guaman APN, CNP PRN reasons: Muscle spasms Frequency: TID PRN 07/25/21 - Until Discontinued Released by: Alicia Guaman APN, CNP 539 Diagnoses Chronic bilateral low back pain without sciatica [M54.5, G89.29] Associated Diagnoses Chronic bilateral low back pain without sciatica [id number] * Telephone Encounter - Diane Ruiz [...] documented as of this encounter Care Teams Coding Clerk Relationship Specialty Start Date End Date James Pierce APRN, JOSE A [address] [address] PCP - General Certified Nurse Practitioner 10/07/18 02/10/23 Terry Anguiano DPM Podiatry 01/07/17 Ronnie Jamil MD Consulting Physician Neurology 03/22/17 10/04/24 documented as of this encounter
--- OUTSIDE RECORDS SUMMARY | 2025-03-30 20:23 | XMS_ITS | Encounter Summary ---
Author Organization [facility] Address [address] [facility] [place] [address] Phone Care Team Providers Care National Service Officer Name Role Phone AnnmarieTerry DPM Unavailable [phone] Ronnie Jamil MD Unavailable [phone] James Pierce APRN, TICKET SALES AGENT Primary Care Pr ovider Reason for Visit * Reason Onset Date Comments Medication Refill 08/02/2020 oxycodone Encounter Details Date Type Department Care Team (Late st Contact Info) Description 08/02/2020 Refill [facility] - Family Medicine [facility] [address] [place] [address] James Pierce, YG, TICKET SALES AGENT [address] [address] Medication Refill (oxycodone) Social History Tobacco Use [...] on file 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 30 . documented in this encounter Plan of Treatment Not on file documented as of this encounter Visit Diagnoses Diagnosis Chronic pain syndrome documented in this encounter Additional Health Concerns Assessment Noted Time PHQ-9 Depression Total Score: 13 019 4:36 PM CDT documented as of this encounter Care Teams National Service Officer Relationship Specialty Start Date End Date James Pierce, RAIL TRACK MAINTAINER, TICKET SALES AGENT [address] [address] PCP - General Certified Nurse Practitioner 10/07/18 02/10/23 Terry Anguiano DPM Podiatry 01/07/17 Ronnie Jamil MD Consulting Physician Neurology 03/22/17 10/04/24 documented as of this encounter
--- OUTSIDE RECORDS SUMMARY | 2025-03-30 20:23 | XMS_ITS | Clinical Summary ---
Author Organization [facility] Address [facility] [place] [address] Care Team Providers Care Electric Shipyard Operator Name Role Phone Frances Aliyah Rosemary HUDDLESTON Primary Care Provider [phone] Allergies Active Allergy Reactions Criticality Noted Date [...] - 03/23/2025 11:59 PM CDT Hospital Encounter [facility] [address] [place] [address] Aliyah Daniels, Discharge Disposition: Home or Self Care (Routine Discharge) 03/23/2025 10:15 AM CDT Home Care Visit [address] [place] [address] Conchis Dominguez, RN SN HOME VISIT 03/23/2025 Orders Only [facility] [address] [place] [address] Aliyah Daniels, DO 03/16/2025 11:17 AM CDT - 03/16/2025 11:59 PM CDT Hospital Encounter [facility] [address] [facility] [place] [address] Aliyah Daniels, Discharge Disposition: Home or Self Care (Routine Discharge) 03/16/2025 10:45 AM CDT Home Care Visit [address] [place] [address] [place] [address] Conchis Dominguez RN SN HOME VISIT 03/16/2025 Orders Only [facility] [address] [place] [address] Aliyah Daniels, 03/16/2025 Orders Only [facility] [address] [facility] [place] [address] Aliyah Daniels, DO 03/09/2025 12:54 PM CDT - 03/09/2025 11:59 PM CDT Hospital Encounter [facility] [address] [place] [address] Aliyah Daniels, Discharge Disposition: Home or Self Care (Routine Discharge) 03/09/2025 11:00 AM CDT Home Care Visit [address] [place] [address] [place] [address] Conchis Dominguez RN SN HOME VISIT 03/09/2025 Orders Only [facility] [address] [place] [address] Aliyah Daniels DO 03/05/2025 12:37 PM CDT - 03/05/2025 11:59 PM CDT Hospital Encounter [facility] [address] [facility] [place] [address] Aliyah Daniels, DO Discharge Disposition: Home or Self Care (Routine Discharge) 03/05/2025 10:00 AM CDT Home Care Visit [address] [place] [address] [place] [address] Conchis Dominguez, RN SN HOME VISIT 03/05/2025 Orders Only [facility] [address] [facility] [place] [place] [address] Aliyah Daniels DO 02/23/2025 12:03 PM CDT - 02/23/2025 11:59 PM CDT Hospital Encounter [facility] [address] [place] [address] Aliyah Daniels DO Discharge Disposition: Home or Self Care (Routine Discharge) 02/23/2025 10:30 AM CDT Home Care Visit [address] [address] Conchis Dominguez RN SN HOME VISIT 02/23/2025 Orders Only [facility] [address] [place] [address] Aliyah Daniels DO 02/16/2025 12:24 PM CDT - 02/16/2025 11:59 PM CDT Hospital Encounter [facility] [address] [place] [address] Aliyah Daniels DO Discharge Disposition: Home or Self Care (Routine Discharge) 02/16/2025 10:00 AM CDT Home Care Visit [address] [place] [address] [place] [address] Conchis Dominguez RN SN OASIS RECERTIFICATION 02/16/2025 Plan of Care Documentation [address] [place] [address] 02/16/2025 Home Care Visit [address] [address] Conchis Dominguez, RN [facility] 02/16/2025 Orders Only [facility] [address] [place] [address] Aliyah Daniels, DO 02/11/2025 Home Care Visit [address] [address] Conchis Dominguez RN SN TELEPHONE CALL 02/09/2025 10:20 AM CDT - 02/09/2025 11:59 PM CDT Hospital Encounter [facility] [address] [place] [address] Aliyah Daniels, Discharge Disposition: Home or Self Care (Routine Discharge) 02/09/2025 8:30 AM CDT Home Care Visit [address] [address] Monse Arevalo RN SN HOME VISIT 02/09/2025 Orders Only [facility] [address] [place] [address] Aliyah Daniels, DO 02/04/2025 2:37 PM CDT - 02/04/2025 11:59 PM CDT Hospital Encounter [facility] [address] Aliyah Daniels DO Discharge Disposition: Home or Self Care (Routine Discharge) 02/04/2025 1:00 PM CDT Home Care Visit [address] [place] [address] Coreen Brunson RN SN HOME PRN VISIT 02/04/2025 Orders Only [facility] [address] Aliyah Daniels DO 02/02/2025 11:23 AM CDT - 02/02/2025 11:59 PM CDT Hospital Encounter [place] [place] [address] Aliyah Daniels, Discharge Disposition: Home or Self Care (Routine Discharge) 02/02/2025 9:30 AM CDT Home Care Visit [address] [place] [address] [place] [address] River Nagy RN SN HOME VISIT 02/02/[address] [facility] [place] [place] [address] Aliyah Daniels DO 01/26/2025 1:14 PM CDT - 01/26/2025 11:59 PM CDT Hospital Encounter [facility] [address] [place] [address] Aliyah Daniels DO Discharge Disposition: Home or Self Care (Routine Discharge) 01/26/2025 11:00 AM CDT Home Care Visit [address] [place] [address] Conchis Dominguez RN SN HOME VISIT 01/26/2025 Orders Only [facility] [address] [place] [address] Aliyah Daniels DO 01/19/2025 12:47 PM EXPLORATION GEOLOGIST - 01/19/2025 11:59 PM EXPLORATION GEOLOGIST Hospital Encounter [facility] [address] [facility] [place] [address] Aliyah Daniels DO Discharge Disposition: Home or Self Care (Routine Discharge) 01/19/2025 11:00 AM EXPLORATION GEOLOGIST Home Care Visit [address] [place] [address] Conchis Dominguez RN SN HOME VISIT 01/19/2025 Orders Only [facility] [address] [facility] [place] [address] Aliyah Daniels DO 01/15/2025 1:26 PM EXPLORATION GEOLOGIST - 01/15/2025 11:59 PM EXPLORATION GEOLOGIST Hospital Encounter [facility] [address] [facility] [place] [address] Elis Louis MD Discharge Disposition: Home or Self Care (Routine Discharge) 01/15/2025 11:00 AM EXPLORATION GEOLOGIST Home Care Visit [address] [address] Conchis Dominguez, RN SN HOME VISIT 01/15/2025 Home Care Visit [address] [address] Monse Arevalo RN CASE COMMUNICATION 01/15/2025 Orders Only [facility] [address] [facility] [place] [address] Elis Louis MD 2025 11:44 AM EXPLORATION GEOLOGIST - 2025 11:59 PM EXPLORATION GEOLOGIST Hospital Encounter [facility] [address] [facility] [place] [address] Elis Louis MD Discharge Disposition: Home or Self Care (Routine Discharge) 2025 10:00 AM EXPLORATION GEOLOGIST Home Care Visit [address] [address] Conchis Dominguez RN SN HOME VISIT 2025 Orders Only [facility] [address] [facility] [place] [place] [address] Elis Louis MD 01/08/2025 1:00 PM EXPLORATION GEOLOGIST Home Care Visit [address] [place] [address] Dacia Perez RN SN HOME VISIT 01/05/2025 10:36 AM EXPLORATION GEOLOGIST - 01/05/2025 11:59 PM EXPLORATION GEOLOGIST Hospital Encounter [facility] [address] [place] [address] Elis Louis MD Discharge Disposition: Home or Self Care (Routine Discharge) 01/05/2025 10:00 AM EXPLORATION GEOLOGIST Home Care Visit [address] [place] [address] Conchis Dominguez RN SN HOME VISIT 01/05/2025 Orders Only [facility] [address] [place] [address] Elis Louis MD 01/01/2025 10:49 AM EXPLORATION GEOLOGIST - 01/01/2025 11:59 PM EXPLORATION GEOLOGIST Hospital Encounter [facility] [address] [place] [address] Elis Louis MD Discharge Disposition: Home or Self Care (Routine Discharge) 01/01/2025 9:00 AM EXPLORATION GEOLOGIST Home Care Visit [address] [place] [address] Conchis Dominguez RN SN HOME VISIT 01/01/2025 Orders Only [facility] [address] [place] [address] Elis Louis MD from Last 3 Months [...] 04/02/2025 9:45 AM CDT Home Care Visit [facility] Home Care [address] [place] [address] Conchis Dominguez, RN 04/07/2025 9:00 AM CDT Home Care Visit [facility] Care [address] [address] Conchis Dominguez, RN 04/13/2025 10:15 AM CDT Home Care Visit [facility] Care [address] [address] Conchis Dominguez, RN 04/20/2025 10:30 AM CDT Appointment [facility] Home Care [address] Care [facility] [place] [address] Conchis Dominguez, RN Health Maintenance Due Date [...] COMPREHENSIVE METABOLIC PANEL Routine 01/19/2025 10:40 AM EXPLORATION GEOLOGIST Alimentary edema (HHS/HCC) MAGNESIUM Routine 01/19/2025 10:40 AM EXPLORATION GEOLOGIST Alimentary edema (HHS/HCC) PHOSPHORUS, INORGANIC PHOSPHATE Routine 01/19/2025 10:40 AM EXPLORATION GEOLOGIST Alimentary edema (HHS/HCC) BASIC METABOLIC PANEL Routine 2025 10:30 AM EXPLORATION GEOLOGIST Alimentary edema (HHS/HCC) CBC W/DIFF AUTOMATED Routine 2025 10:30 AM EXPLORATION GEOLOGIST Alimentary edema (HHS/HCC) MAGNESIUM Routine 2025 10:30 AM EXPLORATION GEOLOGIST Alimentary edema (HHS/HCC) PHOSPHORUS, INORGANIC PHOSPHATE Routine 2025 10:30 AM EXPLORATION GEOLOGIST Alimentary edema (HHS/HCC) BASIC METABOLIC PANEL Routine 01/05/2025 9:30 AM EXPLORATION GEOLOGIST Alimentary edema (HHS/HCC) MAGNESIUM Routine 01/05/2025 9:30 AM EXPLORATION GEOLOGIST Alimentary edema (HHS/HCC) PHOSPHORUS, INORGANIC PHOSPHATE Routine 01/05/2025 9:30 AM EXPLORATION GEOLOGIST Alimentary edema (HHS/HCC) BASIC METABOLIC PANEL Routine 01/01/2025 10:50 AM EXPLORATION GEOLOGIST Alimentary edema (HHS/HCC) MAGNESIUM Routine 01/01/2025 10:50 AM EXPLORATION GEOLOGIST Alimentary edema (HHS/HCC) PHOSPHORUS, INORGANIC PHOSPHATE Routine 01/01/2025 10:50 AM EXPLORATION GEOLOGIST Alimentary edema (HHS/HCC) from Last 3 Months Results * (ABNORMAL) COMPREHENSIVE METABOLIC PANEL (03/23/2025 11:00 AM CDT) Only the most recent of10 resultswithin the time period is included. Pathologist [facility] GLUCOSE 148(H) 70 - 99 MG/DL 03/23/2025 1:22 PM CDT [facility] BUN 18 7 - 18 MG/DL 03/23/2025 1:22 PM CDT [facility] CREATININE S/P/B 0.71 0.55 - 1.02 MG/DL 03/23/2025 1:22 PM CDT [facility] SODIUM S/P/B 139 136 - 145 MMOL/L 03/23/2025 1:22 PM T [facility] POTASSIUM S/P/B 3.8 3.5 - 5.1 MMOL/L 03/23/2025 1:22 PM T [facility] CHLORIDE S/P/B 101 100 - 108 MMOL/L 03/23/2025 1:22 PM T [facility] CO2 26.8 21 - 32 MMOL/L 03/23/2025 1:22 PM T [facility] CALCIUM S/P/B 9.4 8.5 - 10.1 MG/DL 03/23/2025 1:22 PM CDT [facility] BILIRUBIN TOTAL S/P/B 0.2 0.2 - 1.2 MG/DL 03/23/2025 1:22 PM [facility] TOTAL PROTEIN S/P/B 7.7 6.4 - 8.2 G/DL 03/23/2025 1:22 PM [facility] ALBUMIN S/P/B 3.1(L) 3.4 - 5.0 G/DL 03/23/2025 1:22 PM [facility] AST 28 15 - 37 U/L 03/23/2025 1:22 PM [facility] ALT 49 14 - 55 U/L 03/23/2025 1:22 PM [facility] ALKALINE PHOSPHATASE S/P/B 128 50 - 136 U/L 03/23/2025 1:22 PM [facility] ANION GAP 11.2 5 - 15 MMOL/L 03/23/2025 1:22 PM [facility] BUN CREATININE RATIO 25.4 6 - 26 03/23/2025 1:22 PM [facility] A/G RATIO 0.7(L) 1.0 - 2.0 RATIO 03/23/2025 1:22 PM [facility] GFR ESTIMATE >90 >90 ML/MIN/1.7 3 M2 03/23/2025 1:22 PM [facility] Comment: NOTE: eGFR is not calculated for patients <18 years of age. This is an estimated GFR calculation using the new CKD EPI creatinine equation without race and so does not require a correction factor for race. This estimated GFR should not be used for calculating drug doses. 03/23/2025 11:0 0 AM CDT us Aliyah Daniels DO LABORATORY Final Result [facility] [address] [place] [id number], [place] [phone] * PHOSPHORUS, INORGANIC PHOSPHATE (03/23/2025 11:00 AM CDT) Only the most recent of13 resultswithin the time period is included. PHOSPHORUS 3.7 2.5 - 4.9 MG/DL 03/23/2025 1:22 PM CDT [facility] 03/23/2025 11:0 0 AM CDT ZhongSou DO LABORATORY Final Result [facility] [address] [place] [address], [place] [phone] * MAGNESIUM (03/23/2025 11:00 AM CDT) Only the most recent of13 resultswithin the time period is included. MAGNESIUM 2.3 1.8 - 2.4 MG/DL 03/23/2025 1:22 PM CDT [facility] 03/23/2025 11:0 0 AM CDT [employer] DO LABORATORY Final Result Performing Organization Address City/[facility]/ZIP Co de Phone Number [facility] [address] [place] [address], [place] [phone] * (ABNORMAL) CBC W/DIFF AUTOMATED (03/09/2025 11:20 AM CDT) Only the most recent of2 resultswithin the time period is included. WBC 6.62 4.4 - 11.0 x10'3/uL 03/09/2025 12:59 PM CDT [facility] RBC 3.99(L) 4.50 - 5.10 x10'6/uL 03/09/2025 12:59 PM CDT [facility] HGB 12.4 12.3 - 15.3 G/DL 03/09/2025 12:59 PM CDT [facility] HCT 37.5 35.9 - 44.6 % 03/09/2025 12:59 PM CDT [facility] MCV 94.0 80.0 - 96.0 FL 03/09/2025 12:59 PM CDT [facility] MCH 31.1(H) 25.3 - 30.9 PG 03/09/2025 12:59 PM CDT [facility] MCHC 33.1 31.0 - 34.1 G/DL 03/09/2025 12:59 PM CDT [facility] RDW 13.1 12.4 - 15.1 % 03/09/2025 12:59 PM CDT [facility] PLT 277 151 - 353 x10'3/uL 03/09/2025 12:59 PM T [facility] MPV 10.7 9.6 - 12.0 FL 03/09/2025 12:59 PM CDT [facility] RBC MORPHOLOGY NORMAL 03/09/2025 12:59 PM T [facility] PLT MORPH. NORMAL 03/09/2025 12:59 PM CDT [facility] WBC MORPHOLOGY NORMAL 03/09/2025 12:59 PM T [facility] LYMPHOCYTES % 43.1 15.8 - 45.0 % 03/09/2025 12:59 PM CDT [facility] NEUTROPHILS % 47.4 42.1 - 71.9 % 03/09/2025 12:59 PM CDT [facility] MONOCYTES % 7.6 5.7 - 12.5 % 03/09/2025 12:59 PM CDT [facility] EOSINOPHILS 1.1 0.0 - 5.6 % 03/09/2025 12:59 PM CDT [facility] BASOPHILS 0.5 0.0 - 1.3 % 03/09/2025 12:59 PM CDT [facility] ABS. NEUTROPHILS 3.15 1.40 - 6.00 x10'3/uL 03/09/2025 12:59 PM CDT [facility] IMMATURE GRANS % 0.3 0.0 - 0.5 % 03/09/2025 12:59 PM CDT [facility] ABS. LYMPHOCYTES 2.85 0.80 - 4.70 x10'3/uL 03/09/2025 12:59 PM CDT [facility] 03/09/2025 11:2 0 AM CDT Aliyah Daniels DO LABORATORY Final Result [facility] [address] [place] [address], [place] [phone] * (ABNORMAL) BASIC METABOLIC PANEL (2025 10:30 AM EXPLORATION GEOLOGIST) Only the most recent of3 resultswithin the time period is included. GLUCOSE 155(H) 70 - 99 MG/DL 2025 12:10 PM EXPLORATION GEOLOGIST [facility] BUN 17 7 - 18 MG/DL 2025 12:10 PM EXPLORATION GEOLOGIST [facility] CREATININE S/P/B 0.62 0.50 - 1.20 MG/DL 2025 12:10 PM EXPLORATION GEOLOGIST [facility] SODIUM S/P/B 141 136 - 145 MMOL/L 2025 12:10 PM EXPLORATION GEOLOGIST [facility] POTASSIUM S/P/B 4.7 3.5 - 5.1 MMOL/L 2025 12:10 PM EXPLORATION GEOLOGIST [facility] CHLORIDE S/P/B 103 100 - 108 MMOL/L 2025 12:10 PM EXPLORATION GEOLOGIST [facility] CO2 26.9 21.0 - 32.0 MMOL/L 2025 12:10 PM EXPLORATION GEOLOGIST [facility] CALCIUM S/P/B 8.8 8.5 - 10.1 MG/DL 2025 12:10 PM EXPLORATION GEOLOGIST [facility] ANION GAP 11.1 5.0 - 15.0 MMOL/L 2025 12:10 PM EXPLORATION GEOLOGIST [facility] BUN CREATININE RATIO 27.4(H) 6 - 26 2025 12:10 PM EXPLORATION GEOLOGIST [facility] GFR ESTIMATE >90 >90 ML/MIN/1.7 3 M2 2025 12:10 PM [facility] Comment: NOTE: eGFR is not calculated for patients <18 years of age. This is an estimated GFR calculation using the new CKD EPI creatinine equation without race and so does not require a correction factor for race. This estimated GFR should not be used for calculating drug doses. 2025 10:3 0 AM EXPLORATION GEOLOGIST Elis Louis MD LABORATORY Final Result [facility] [address] [place] [address], from Last 3 Months Insurance [employer] Advance Directives * Full Code (Latest Code Status on File) Date Activated Date Inactivated Comments 12/22/2024 9:09 PM Care Teams Electric Shipyard Operator Relationship Specialty [place] [address] [place] [address] [place] [phone] PCP - General FAMILY PRACTICE 12/21/24
--- OUTSIDE RECORDS SUMMARY | 2025-03-30 20:23 | XMS_ITS ---
Author Organization [facility] Address [address] [place] [address] Care Team Providers Care Overhead Cleaner Name Role Phone Elis Louis MD PhD Unavailable + Aliyah Daniels DO Primary Care Provider [phone] RxHI TPN - TPN (Start Here) 1700 ml IV Every 24 Hours Status:Under Review (Active) Start date:03/26/2025 Enrollment date:03/26/2025 Related program episode:Home Infusion (Active) Continued Care and Services Coordination
--- OUTSIDE RECORDS SUMMARY | 2025-03-30 20:23 | XMS_ITS | Encounter Summary ---
Author Organization [facility] Address [address] [place] [address] Care Team Providers Care Plating Engineer Name Role Phone Aliyah Daniels DO Primary Care Provider [phone] Encounter Details Date Type Department Care Team (Late st Contact Info) Description 03/23/2025 Orders Only [facility] [address] [place] [address] Aliyah Daniels DO [address] [facility] [address] [place] [address] Social History Tobacco Use Types [...] 04/02/2025 9:45 AM CDT Home Care Visit [facility] Care [address] [place] [address] [place] [address] Conchis Dominguez RN 04/07/2025 9:00 AM CDT Home Care Visit [facility] Care [address] [place] [address] [place] [address] Conchis Dominguez RN 04/13/2025 10:15 AM CDT Home Care Visit [address] [place] [address] [place] [address] Conchis Dominguez RN 04/20/2025 10:30 AM CDT Appointment [address] [place] [address] [place] [address] Conchis Dominguez, RN documented as of this encounter Results * PHOSPHORUS, INORGANIC PHOSPHATE (03/23/2025 11:00 AM CDT) PHOSPHORUS 3.7 2.5 - 4.9 MG/DL 03/23/2025 1:22 PM CDT [facility] 03/23/2025 11:0 0 AM CDT us Ly A Frances DO LABORATORY Final Result Performing Organization Address City/[facility]/ZIP Co de Phone Number [facility] [address] [place] [address], [place] [phone] * MAGNESIUM (03/23/2025 11:00 AM CDT) MAGNESIUM 2.3 1.8 - 2.4 MG/DL 03/23/2025 1:22 PM CDT [facility] 03/23/2025 11:0 0 AM CDT us Aliyah A [place] DO LABORATORY Final Result Performing Organization Address [facility]/ZIP Co de Phone Number [facility] [address] [place] [address], [place] [phone] * (ABNORMAL) COMPREHENSIVE METABOLIC PANEL (03/23/2025 11:00 AM CDT) [facility] GLUCOSE 148(H) 70 - 99 MG/DL 03/23/2025 1:22 PM [facility] BUN 18 7 - 18 MG/DL 03/23/2025 1:22 PM [facility] CREATININE S/P/B 0.71 0.55 - 1.02 MG/DL 03/23/2025 1:22 PM T [facility] SODIUM S/P/B 139 136 - 145 MMOL/L 03/23/2025 1:22 PM [facility] POTASSIUM S/P/B 3.8 3.5 - 5.1 MMOL/L 03/23/2025 1:22 PM [facility] CHLORIDE S/P/B 101 100 - 108 MMOL/L 03/23/2025 1:22 PM [facility] CO2 26.8 21 - 32 MMOL/L 03/23/2025 1:22 PM [facility] CALCIUM S/P/B 9.4 8.5 - 10.1 MG/DL 03/23/2025 1:22 PM [facility] BILIRUBIN TOTAL S/P/B 0.2 0.2 - 1.2 MG/DL 03/23/2025 1:22 PM [facility] TOTAL PROTEIN S/P/B 7.7 6.4 - 8.2 G/DL 03/23/2025 1:22 PM [facility] ALBUMIN S/P/B 3.1(L) 3.4 - 5.0 G/DL 03/23/2025 1:22 PM [facility] AST 28 15 - 37 U/L 03/23/2025 1:22 PM [facility] ALT 49 14 - 55 U/L 03/23/2025 1:22 PM CDT [facility] ALKALINE PHOSPHATASE S/P/B 128 50 - 136 U/L 03/23/2025 1:22 PM T [facility] ANION GAP 11.2 5 - 15 MMOL/L 03/23/2025 1:22 PM T [facility] BUN CREATININE RATIO 25.4 6 - 26 03/23/2025 1:22 PM T [facility] A/G RATIO 0.7(L) 1.0 - 2.0 RATIO 03/23/2025 1:22 PM T [facility] GFR ESTIMATE >90 >90 ML/MIN/1.7 3 M2 03/23/2025 1:22 PM T [facility] Comment: NOTE: eGFR is [...] DO LABORATORY Final Result Performing Organization Address City/State/[place] Co de Phone Number [facility] [address] [place] [address], documented in this encounter Visit Diagnoses Diagnosis Alimentary edema (HHS/HCC)- Primary Other severe protein-calorie malnutrition documented in this encounter Care Teams Plating Engineer Relationship Specialty Start Date End Date Aliyah Daniels DO [facility] [address] [place] [id number] PCP - General FAMILY PRACTICE 12/21/24 documented as of this encounter
--- OUTSIDE RECORDS SUMMARY | 2025-03-30 20:23 | XMS_ITS ---
Author Organization [facility] Address [address] [place] [address] Care Team Providers Care Middleware Systems Architect Name Role Phone Elis Louis MD PhD Unavailable + Aliyah Daniels DO Primary Care Provider [phone] Home Infusion Status:Enrolled (Active) Start date:03/26/2025 Enrollment date:03/26/2025 Related service episodes:RxHI TPN - TPN (Start Here) 1700 ml IV Every 24 Hours (Active) Continued Care and Services Coordination
--- OUTSIDE RECORDS SUMMARY | 2025-03-30 20:23 | XMS_ITS | Encounter Summary ---
Author Organization [facility] Address [address] [facility] [place] [address] Phone Care Team Providers Care Protective Signal Repairer Helper Name Role Phone Terry Anguiano Patricia MARC Unavailable [phone] Ronnie Jamil MD Unavailable [phone] James Pierce APRN, ASSIGNMENT DESK ASSISTANT Primary Care Pr ovider Reason for Visit * Reason Comments Medication Refill Encounter Details Date Type Department Care Team (Late st Contact Info) Description 04/26/2020 Refill [facility] - Family Medicine [facility] [address] [place] [address] James Pierce, YG, ASSIGNMENT DESK ASSISTANT [address] [address] Medication Refill Social History Tobacco Use Types [...] on file 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 James Pierce APN, CNP 4 months ago Major depressive disorder, recurrent episode, moderate with anxious distress (HCC) [facility] James Guerra APN, CNP 7 months ago Essential hypertension [facility] James Pierce APN, CNP 10 months ago Chronic obstructive pulmonary disease, unspecified COPD type (HCC) [facility] James Pierce APN, CNP Upcoming Appointments Future Appointments In 6 days James Pierce APN, CNP [facility], [facility] oxyCODONE-Acetaminophen (PERCOCET) 10-325 MG Tablet [Pharmacy Med [...] 1 month ago Lower extremity pain, right [facility] James Pierce APN, CNP 3 months ago Encounter for general adult medical examination with abnormal findings [facility] James Pierce APN, CNP 4 months ago Major depressive disorder, recurrent episode, moderate with anxious distress (HCC) [facility] James Pierce APN, CNP 7 months ago Essential hypertension [facility] James Pierce APN, CNP 10 months ago Chronic obstructive pulmonary disease, unspecified COPD type (HCC) [facility] James Pierce APN, CNP Upcoming Appointments Future Appointments In 6 days James Pierce APN, CNP [facility], [facility] documented in this encounter Plan of Treatment Not on file documented as of this encounter Visit Diagnoses Diagnosis Fibromyalgia Mylagia and myositis, unspecified Chronic pain syndrome documented in this encounter Additional Health Concerns Assessment Noted Time PHQ-9 Depression Total Score: 13 019 4:36 PM CDT documented as of this encounter Care Teams Protective Signal Repairer Helper Relationship Specialty Start Date End Date James Pierce APRN, CNP [address] [address] PCP - General Certified Nurse Practitioner 10/07/18 02/10/23 Terry Anguiano DPM Podiatry 01/07/17 Ronnie Jamil MD Consulting Physician Neurology 03/22/17 10/04/24 documented as of this encounter
--- OUTSIDE RECORDS SUMMARY | 2025-03-30 20:23 | XMS_ITS | Encounter Summary ---
Author Organization [facility] Address [address] [facility] [place] [address] Phone Care Team Providers Care Superintendent Meter Tests Name Role Phone Terry Anguiano Patricia MARC Unavailable [phone] Ronnie Jamil MD Unavailable [phone] James Pierce APRN, CASTING CHIPPER Primary Care Pr ovider Reason for Visit * Reason Comments Medication Refill Encounter Details Date Type Department Care Team (Late st Contact Info) Description 03/25/2021 Refill [facility] - Family Medicine [facility] [address] [place] [id number] James Pierce, YG, CASTING CHIPPER [address] [address] Medication Refill Social History Tobacco Use Types [...] on file 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
--- OUTSIDE RECORDS SUMMARY | 2025-03-30 20:23 | XMS_ITS | Clinical Summary ---
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 Not on file Not on file Not on file Last Filed Vital Signs Vital Sign Reading Time Taken Comments Blood Pressure 110/64 12/08/2021 2:18 PM CHURCH HISTORY PROFESSOR Pulse 80 12/08/2021 2:18 PM CHURCH HISTORY PROFESSOR Temperature 35.9 C (96.7 F) 12/08/2021 2:18 PM CHURCH HISTORY PROFESSOR Respiratory Rate 14 12/08/2021 2:18 PM CHURCH HISTORY PROFESSOR Oxygen Saturation 96% 11/02/2021 9:25 AM CHURCH HISTORY PROFESSOR Inhaled Oxygen Concentration - - Weight 49.9 kg (110 lb 1.6 oz) 12/08/2021 2:18 P M CHURCH HISTORY PROFESSOR Height 170.2 cm (5' 7 ) 12/08/2021 2:18 PM CHURCH HISTORY PROFESSOR Body Mass Index 17.24 12/08/2021 2:18 PM CHURCH HISTORY PROFESSOR Plan of Treatment Health Maintenance Due Date [...] exam. Electronically signed by: Agus sprague/odessa:04/14/2021 12:09:55 Endoscopy Registered Nurse: Joslyn Roy RT(R)(M), [facility] letter sent: Normal Exam Reading location: [facility] BI-RADS: 1 Negative Procedure Note [...] exam. Electronically signed by: Agus sprague/odessa:04/14/2021 12:09:55 Endoscopy Registered Nurse: Joslyn Roy RT(R)(M), [facility] letter sent: Normal Exam Reading location: [place] BI-RADS: 1 Negative us James Yann Pierce WOOD TILE INSTALLATION HELPER, WEB OFFSET PRESS FEEDER IMG MAMMO ORDERA BLES Final Result from Last 3 Months or Most Recently Relevant to Health Maintenance Insurance MEDICAID [place] Care Teams Motor Vehicle Technician Relationship Specialty Start Date End Date Terry Anguiano DPM Podiatry 01/07/17
--- OUTSIDE RECORDS SUMMARY | 2025-03-30 20:23 | XMS_ITS | Clinical Summary ---
Author Organization [facility] Address [address] [place] [address] Care Team Providers Care Rail Car Driver Name Role Phone Alejo Birch Md, MD Primary Care Provider Unavailable Source Comments [facility],non-owned Affiliates and Associated Physician Practices is amultiple site organization consisting of ambulatory clinics and hospital sitesin [place], [place], [place] and [place]. This disclosure is being madepursuant to the Care Everywhere program and may not contain all information available regarding this patient. 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
--- NOTE | 2025-03-30 20:35 | PC.NURSE ---
patient agitated that she has been here for 3 and a half hours. patient states that she can't have the pain any more she's tired of being in pain and no doctor has come in patient told a tech that she was leaving. patient ambulated appropriately with a steady gait
== END 2025-03-30 20:25 | disposition left against medical advice (07) ==
PROVIDERS: Emergency Provider Emergency Medicine
DX: M54.9 Dorsalgia, unspecified (principal)
CPT/HCPCS: 99199